=== PATIENT | male | born 1945 | race Caucasian/White ===

== ENCOUNTER 2016-10-18 07:40 | Emergency (ER) | payer OTHER ==
[2016-10-18 07:45] VITALS: RESP 18
--- NOTE | 2016-10-18 07:47 | EDPHY ---
H & P Stated Complaint: heart palpitations "in and out of afib" Time Seen by Provider: 10/18/16 07:47 HPI/ROS: CHIEF COMPLAINT: Palpitations HISTORY OF PRESENT ILLNESS: The patient presents to the ED with a 1 day history of palpitations. The patient has a history of paroxysmal atrial fibrillation. He reports he has had 2 episodes of life the 1st 2 years ago, the 2nd several weeks ago while traveling in [place]. The patient currently is asymptomatic. He denies any history of increasing exertional chest pain or dyspnea. The patient denies asymmetric calf pain or swelling. The patient denies pleuritic chest pain. The patient does have a history of coronary artery disease status post CABG. The patient also has a history of vasculitis and chronic renal insufficiency. The patient did have a recent upper respiratory infection and completed a 7 day course of amoxicillin. REVIEW OF SYSTEMS: A comprehensive 10 point review of systems is otherwise negative aside from elements mentioned in the history of present illness. Source: Patient Exam Limitations: No limitations - Personal History Tetanus Vaccine Date: 2006 - Medical/Surgical History Hx Asthma: No Hx Chronic Respiratory Disease: No Hx Diabetes: No Hx Cardiac Disease: Yes Hx Renal Disease: Yes Hx Cirrhosis: No Hx Alcoholism: No Hx HIV/AIDS: No Hx Splenectomy or Spleen Trauma: No Other PMH: SBO, only 1 kidney functioning, systemic vasculitis, left eye vitrectomy r/t bleeding in eye, heart surgery, vitrious, back surgery. Afib, renal stents, CABG 2006 cateract surgery - Social History Smoking Status: Never smoked - Physical Exam Exam: General Appearance: Alert, no distress Eyes: Pupils equal and round no pallor or injection ENT, Mouth: Mucous membranes moist Respiratory: There are no retractions, lungs are clear to auscultation Cardiovascular: Regular rate and rhythm Gastrointestinal: Abdomen is soft and nontender, no masses, bowel sounds normal Neurological: A&O, normal motor function, normal sensory exam, normal cranial nerves Skin: Warm and dry, no rashes Musculoskeletal: Neck is supple nontender Extremities: symmetrical, full range of motion Constitutional: Initial Vital Signs Temperature (C) 36.8 C 10/18/16 07:41 Heart Rate 74 10/18/16 07:41 Respiratory Rate 18 10/18/16 07:41 Blood Pressure 90/47 L 10/18/16 07:41 O2 Sat (%) 96 09/08/17 07:41 O2 Delivery Mode Room Air Allergies/Adverse Reactions: No Known Allergies Allergy (Verified 05/22/15 19:05) Home Medications: Medication Instructions Recorded Wy[place]-3 Fatty Acids [Fish Oil 1000 1,000 mg PO BID 03/30/12 mg (*)] Valsartan [Diovan (*)] 80 mg PO DAILY 03/30/12 Aspirin [Aspirin 81mg (*)] 81 mg PO HS 10/08/13 Atorvastatin Calcium [Lipitor 40 80 mg PO HS 10/08/13 mg (*)] Clopidogrel Bisulfate [Plavix (*)] 75 mg PO DAILY18 10/08/13 Hydrochlorothiazide [HCTZ (*)] 25 mg PO DAILY 10/08/13 Multivitamins [Multivitamin (*)] 1 each PO DAILY 10/08/13 Pantoprazole Sodium [Protonix 40mg 40 mg PO DAILY 10/08/13 (*)] Potassium Citrate [Urocit-K 10meq 20 meq PO BID 10/08/13 (*)] Tocilizumab [ACTEMRA] 720 mg IV Q28D 10/08/13 azaTHIOprine [Imuran 50 mg (*)] 50 mg PO BID 10/08/13 predniSONE 10 mg PO DAILY 10/08/13 traMADol [Ultram 50 mg (*)] 50 mg PO Q4 PRN 10/08/13 Zolpidem Tartrate [Ambien 5MG (*)] 5 mg PO HS PRN #0 tab 05/26/15 Citalopram Hydrobromide [celeXA 10 10 mg PO HS 12/28/15 MG] Ferrous Sulfate [Ferrous Sulf 325 325 mg PO HS 12/28/15 MG (*)] Glucosamine/Chondroitin 1 each PO BID 12/28/15 [Glucosamine/Chondroitin (*)] Imiquimod 1 each TP HS 12/28/15 Tamsulosin HCl [Flomax] 0.4 mg PO DAILY 12/28/15 Tretinoin/Emollient Base 1 therese TP DAILY 12/28/15 [Tretinoin 0.05% Emollient Crm] rOPINIRole HCL [Requip 1mg (*)] 1 mg PO HS 12/28/15 Medical Decision Making - Diagnostics EKG Interpretation: EKG: Complete interpretation has been separately recorded in the [facility] archive. Summary impression: Sinus rhythm, chronic Q-waves noted in the inferior leads, no evidence of ST segment elevation or depression ED Course/Re-evaluation: The patient presents to the ED with reported history of intermittent palpitations. The patient is noted to be in a sinus rhythm. His blood pressure is well controlled. There is no historical information suggestive of pulmonary embolism or acute coronary syndrome. The patient is scheduled to see his wide area network engineer in follow-up on Friday. The patient was placed on a hardening machine operator helper in the emergency department. The patient was monitored for an hour and half without evidence of recurrent atrial fibrillation. He does have a indeterminately elevated troponin. I did speak with his regular wide area network engineer Dr. Eder Guadarrama at 9:00 a.m.. I reviewed the patient's presentation and emergency department data. The patient does have a history of known coronary artery disease as well as a significant complicated vasculitis. The patient has no evidence of ST segment elevation myocardial infarction. The patient likely has a slight troponin bump secondary to his underlying coronary disease and possible demand ischemia from tachycardia earlier today. In the absence of any worsening anginal symptoms or ST segment elevation myocardial infarction recommendation is made for continued medical management of his coronary artery disease. Regarding the patient's arrhythmia, Dr. Eder Guadarrama is making arrangements to have a Holter monitor placed on the patient while he is in the emergency department. He will wear this and follow up with his wide area network engineer on Friday to discuss the results and need for additional therapy such as anticoagulation or rate control agents. The patient will be instructed to return to the emergency department this weekend should he developed any significant tachycardia, chest pain or difficulty breathing. Differential Diagnosis: Differential diagnosis considered includes atrial fibrillation, PVCs, SVT, myocardial infarction, worsening renal failure - Data Points Laboratory Results: Laboratory Results 10/18/16 09:08 10/18/16 09:08 Sodium 139 mEq/L mEq/L (134-144) Potassium 4.4 mEq/L mEq/L (3.5-5.2) Chloride 102 mEq/L mEq/L (97-110) Carbon Dioxide 30 mEq/l mEq/l (22-31) Anion Gap 7 mEq/L L mEq/L (8-16) BUN 32 mg/dL H mg/dL (7-23) Creatinine 1.6 mg/dL H mg/dL (0.7-1.3) Estimated GFR 43 Glucose 85 mg/dL mg/dL (70-100) Calcium 8.9 mg/dL mg/dL (8.5-10.4) Troponin I 0.073 ng/mL H ng/mL (0.000-0.034) Departure - Departure Disposition: Home, Routine, Self-Care Clinical Impression: Palpitations, History of atrial fibrillation Condition: Good Instructions: A-fib (Atrial Fibrillation) (ED) Additional Instructions: 1. Please return to the emergency department for any tachycardia or palpitations which do not stop on their own, heart rate greater than 100, chest pain, shortness of breath or other concerns. 2. Please follow up with your wide area network engineer as scheduled on Friday. Wear Holter monitor as prescribed by Cardiology. 3. Please go directly to [facility] so they can place a Holter monitor. Referrals: Eder Guadarrama MD [Medical Doctor] - As per Instructions
--- NOTE | 2016-10-18 07:54 | CPEKG ---
Heart Rate: 66 RR Interval: 909 P-R Interval: 136 QRSD Interval: 110 QT Interval: 424 QTC Interval: 445 P [place]: 57 QRS [place]: -55 T Wave [place]: 76 EKG Severity - ABNORMAL ECG - EKG Impression: SINUS RHYTHM EKG Impression: PROBABLE LEFT ATRIAL ABNORMALITY EKG Impression: LAD, CONSIDER LEFT ANTERIOR FASCICULAR BLOCK Electronically Signed By: Sukumar García 18-Oct-2016 07:55:55
[2016-10-18 08:31] LABS: ANION GAP 7 mEq/L (8-16); CALCIUM 8.9 mg/dL (8.5-10.4); CARBON DIOXIDE 30 mEq/l (22-31); CHLORIDE 102 mEq/L (97-110); CREATININE 1.6 mg/dL (0.7-1.3); GLOMERULAR FILTRATION RATE 43; GLUCOSE 85 mg/dL (70-100); POTASSIUM 4.4 mEq/L (3.5-5.2); SODIUM 139 mEq/L (134-144)
[2016-10-18 08:43] LABS: TROPONIN I 0.073 ng/mL (0.000-0.034)
[2016-10-18 09:59] VITALS: BP 136/85; PULSE 63; TEMP 98.4; O2SAT 98
== END 2016-10-18 09:56 | disposition home or self-care (01) ==
DX: R00.2 Palpitations (principal); I25.810 Atherosclerosis of coronary artery bypass graft(s) without angina pectoris; Z86.79 Personal history of other diseases of the circulatory system; Z79.82 Long term (current) use of aspirin

== ENCOUNTER → 2016-11-05 | Outpatient (CLI) | payer OTHER | LOC: BHFA 10:45 | PROVIDERS: ATTEND Internal Medicine Cardiovascular Disease | DX: I48.91 Unspecified atrial fibrillation (principal); I34.1 Nonrheumatic mitral (valve) prolapse ==

== ENCOUNTER → 2016-12-19 | Outpatient (CLI) | payer OTHER | LOC: FIMAGING 10:26 | PROVIDERS: ATTEND Physical Medicine & Rehabilitation | DX: M46.92 Unspecified inflammatory spondylopathy, cervical region (principal); M50.31 Other cervical disc degeneration, high cervical region; M48.02 Spinal stenosis, cervical region ==

== ENCOUNTER → 2017-04-25 | Outpatient (CLI) | payer OTHER | LOC: BRMIMAGING 10:20 | PROVIDERS: ATTEND Internal Medicine Nephrology | DX: N20.0 Calculus of kidney (principal) | CPT/HCPCS: 74018-PO ==

== ENCOUNTER → 2017-06-06 | Outpatient (CLI) | payer OTHER | LOC: BHFA 14:00 | PROVIDERS: ATTEND Internal Medicine Cardiovascular Disease | DX: R07.9 Chest pain, unspecified (principal); I25.10 Atherosclerotic heart disease of native coronary artery without angina pectoris; I48.91 Unspecified atrial fibrillation; I73.9 Peripheral vascular disease, unspecified | CPT/HCPCS: 78452; 93017; A9500; J2785 ==

== ENCOUNTER 2017-07-02 13:48 | Inpatient (IN) | payer OTHER ==
[2017-07-02] MEDS ORDERED: NS 2,700 ML IV ONE (14:09)
[2017-07-02] MEDS ORDERED: ACETAMINOPHEN 500 MG TAB ONE (14:15)
--- NOTE | 2017-07-02 14:15 | EDPHY ---
H & P Stated Complaint: skin cancer incised l leg 2 wks ago/rx augmentin/worse inf Time Seen by Provider: 07/02/17 14:03 HPI/ROS: CHIEF COMPLAINT: Left leg infection HISTORY OF PRESENT ILLNESS: The patient is a 71-year-old man sent from dermatology office with concerns for sepsis and wound infection. The patient is a 71-year-old man with a history of severe vasculitis as well as 5 vessel CABG and multiple peripheral stents including bilateral renal arteries and mesenteric artery. He has had balloon angioplasty in his leg as well. 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 He it became infected and he was started on Augmentin and finished a 14 day course on Friday. His symptoms resolved while he was on the Augmentin but have returned over the last few days. He is having chills and fevers and significant pain. He was seen again at the Dermatology office today who transferred him here by ambulance. He is also immunosuppressed on prednisone and monthly injection for his vasculitis. Culture sent from dermatology office. He is also on Eliquis and Plavix for history of atrial fibrillation and vascular disease. REVIEW OF SYSTEMS: Constitutional: denies: chills, fever, recent illness, recent injury EENTM: denies: blurred vision, double vision, nose congestion Respiratory: denies: cough, shortness of breath Cardiac: denies: chest pain, irregular heart rate, lightheadedness, palpitations Gastrointestinal/Abdominal: denies: abdominal pain, diarrhea, nausea, vomiting, blood streaked stools Genitourinary: denies: dysuria, frequency, hematuria, pain Musculoskeletal: denies: joint pain, muscle pain Skin: See HPI Neurological: denies: headache, numbness, paresthesia, tingling, dizziness, weakness Hematologic/Lymphatic: denies: blood clots, easy bleeding, easy bruising Immunologic/allergic: denies: HIV/AIDS, transplant EXAM: GENERAL: Chills, moderate distress. HEAD: Atraumatic, normocephalic. EYES: Pupils equal round and reactive to light, extraocular movements intact, sclera anicteric, conjunctiva are normal. ENT: TMs normal, nares patent, oropharynx clear without exudates. Moist mucous membranes. NECK: Normal range of motion, supple without lymphadenopathy or JVD. LUNGS: Breath sounds clear to auscultation bilaterally and equal. No wheezes rales or rhonchi. HEART: Regular rate and rhythm without murmurs, rubs or gallops. ABDOMEN: Soft, nontender, normoactive bowel sounds. No guarding, no rebound. No masses appreciated. BACK: No CVA tenderness, no spinal tenderness, step-offs or deformities EXTREMITIES: Normal range of motion, no pitting or edema. No clubbing or cyanosis. NEUROLOGICAL: Cranial nerves II through XII grossly intact. Normal speech, normal gait. 5/5 strength, normal movement in all extremities, normal sensation PSYCH: Normal mood, normal affect. SKIN: Left leg with 2 x 4 cm ulceration to the anterior lamb with purulence at the base. Surrounding erythema and warmth. Bruising proximally. Moderate edema. Source: Patient Exam Limitations: No limitations - Personal History Current Tetanus/Diphtheria Vaccine: Yes Tetanus Vaccine Date: 2006 - Medical/Surgical History Hx Asthma: No Hx Chronic Respiratory Disease: No Hx Diabetes: No Hx Cardiac Disease: Yes Hx Renal Disease: Yes Hx Cirrhosis: No Hx Alcoholism: No Hx HIV/AIDS: No Hx Splenectomy or Spleen Trauma: No Other PMH: SBO, only 1 kidney functioning, systemic vasculitis, left eye vitrectomy r/t bleeding in eye, heart surgery, vitrious, back surgery. Afib, renal stents, CABG 2006 cateract surgery/afib - Family History Significant Family History: No pertinent family hx - Social History Smoking Status: Never smoked Constitutional: Initial Vital Signs Temperature (C) 38.3 C 07/02/17 13:53 Heart Rate 94 07/02/17 13:53 Respiratory Rate 18 07/02/17 13:53 Blood Pressure 111/91 H 07/02/17 13:53 O2 Sat (%) 93 07/02/17 13:53 O2 Delivery Mode Room Air O2 (L/minute) 3 Allergies/Adverse Reactions: No Known Allergies Allergy (Verified 07/02/17 13:52) Home Medications: Medication Instructions Recorded Phelps-3 Fatty Acids [Fish Oil 1000 1,000 mg PO BID 03/30/12 mg (*)] Valsartan [Diovan (*)] 80 mg PO DAILY 03/30/12 Atorvastatin Calcium [Lipitor 40 80 mg PO HS 10/08/13 mg (*)] Clopidogrel Bisulfate [Plavix (*)] 75 mg PO DAILY18 10/08/13 Hydrochlorothiazide [HCTZ (*)] 25 mg PO DAILY 10/08/13 Multivitamins [Multivitamin (*)] 1 each PO DAILY 10/08/13 Pantoprazole Sodium [Protonix 40mg 40 mg PO DAILY 10/08/13 (*)] Potassium Citrate [Urocit-K 10meq 20 meq PO BID 10/08/13 (*)] Tocilizumab [ACTEMRA] 720 mg IV Q28D 10/08/13 predniSONE 10 mg PO DAILY 10/08/13 traMADol [Ultram 50 mg (*)] 50 mg PO Q4 PRN 10/08/13 Citalopram Hydrobromide [celeXA 10 10 mg PO HS 12/28/15 MG] Ferrous Sulfate [Ferrous Sulf 325 325 mg PO HS 12/28/15 MG (*)] Glucosamine/Chondroitin 1 each PO BID 12/28/15 [Glucosamine/Chondroitin (*)] Tamsulosin HCl [Flomax] 0.4 mg PO HS 12/28/15 Apixaban [Eliquis] 2.5 mg PO BID 07/02/17 Diltiazem HCl [Diltiazem 24Hr ER] 120 mg PO DAILY 07/02/17 Zolpidem Tartrate [Ambien 5MG (*)] 10 mg PO HS PRN 07/02/17 rOPINIRole HCL [Requip 2mg (*)] 2 mg PO HS 07/02/17 Medical Decision Making - Diagnostics EKG Interpretation: An EKG obtained and was read and documented in trace view. Please see trace view for full reading and report. Sinus tachycardia, otherwise similar to previous, no acute ischemic changes ED Course/Re-evaluation: 2:50 p.m. I discussed the case with Dr. Arizmendi who will admit to the step-down unit. He recommends adding vancomycin. Discussed this with the patient and his . He he is understandably sad. Differential Diagnosis: Partial list of the Differential diagnosis considered include but were not limited to; sepsis, cellulitis, wound infection and although unlikely based on the history and physical exam, I also considered DVT, PE, acute coronary disease. Critical Care Time: Critical care time spent by me, Dr. Vargas exclusive with this patient was 35 minutes, exclusive of the PA time exclusive of procedures. The organ system that was at risk was cardiovascular and I gave IV fluids, antibiotics, consultation and admission to prevent worsening of the patient's condition - Data Points Laboratory Results: Laboratory Results 07/02/17 14:08 07/02/17 14:08 07/02/17 07/02/17 07/02/17 14:52 14:26 14:09 WBC RBC Hgb POC Hgb 17.3 gm/dL gm/dL (13.7-17.5) Hct POC Hct 51 % % (40-51) MCV MCH MCHC RDW Plt Count MPV Neut % (Auto) Lymph % (Auto) [place] % (Auto) Eos % (Auto) Baso % (Auto) Nucleat RBC Rel Count Absolute Neuts (auto) Absolute Lymphs (auto) Absolute Monos (auto) Absolute Eos (auto) Absolute Basos (auto) Absolute Nucleated RBC Immature Gran % Immature Gran # RBC/WBC/PLT Morphology Platelet Estimate PT INR APTT VBG Lactic Acid TNP POC Sodium 139 mEq/L mEq/L (135-145) Sodium POC Potassium 4.1 mEq/L mEq/L (3.3-5.0) Potassium POC Chloride 97 mEq/L mEq/L (97-110) Chloride Carbon Dioxide Anion Gap POC BUN 37 mg/dL H mg/dL (7-23) BUN Creatinine POC Creatinine 2.0 mg/dL H mg/dL (0.7-1.3) Estimated GFR Glucose POC Glucose 113 mg/dL H mg/dL (70-100) Calcium Total Bilirubin Urine Color YELLOW Urine Appearance HAZY Urine pH 7.0 (5.0-7.5) Ur Specific [place] 1.014 (1.002-1.030) Urine Protein NEGATIVE (NEGATIVE) Urine Ketones NEGATIVE (NEGATIVE) Urine Blood 3+ H (NEGATIVE) Urine Nitrate NEGATIVE (NEGATIVE) Urine Bilirubin NEGATIVE (NEGATIVE) Urine Urobilinogen NEGATIVE EU EU (0.2-1.0) Ur Leukocyte Esterase 1+ H (NEGATIVE) Urine RBC Cancelled Urine WBC Cancelled Ur Epithelial Cells Cancelled Ur Renal Epithelial Cell Cancelled Urine Crystals Cancelled Ammonium Urate Crystals Cancelled Calcium Carbonate Cryst Cancelled Calcium Phosphate Cryst Cancelled Calcium Oxalate Crystal Cancelled Leucine Crystals Cancelled Cystine Crystals Cancelled Uric Acid Crystals Cancelled Triple Phos Crystals Cancelled Sulfonamide Crystals Cancelled Cholesterol Crystals Cancelled Tyrosine Crystals Cancelled Bilirubin Crystals Cancelled Amorphous Sediment Cancelled Urine Bacteria Cancelled Epithelial Casts Cancelled Fatty Casts Cancelled Hyaline Casts Cancelled Granular Casts Cancelled Waxy Casts Cancelled Broad Casts Cancelled RBC Casts Cancelled WBC Casts Cancelled Urine Mucus Cancelled Urine Trichomonas Cancelled Urine Yeast Cancelled Urine Sperm Cancelled Ur Oval Fat Bodies Cancelled Ur Free Fat Droplets Cancelled Urine Glucose NEGATIVE (NEGATIVE) Urine Comment Cancelled 07/02/17 07/02/17 07/02/17 14:08 14:08 14:08 WBC 12.07 10^3/uL H 10^3/uL (3.80-9.50) RBC 5.03 10^6/uL 10^6/uL (4.40-6.38) Hgb 16.8 g/dL g/dL (13.7-17.5) POC Hgb Hct 48.8 % % (40.0-51.0) POC Hct MCV 97.0 fL fL (81.5-99.8) MCH 33.4 pg pg (27.9-34.1) MCHC 34.4 g/dL g/dL (32.4-36.7) RDW 12.3 % % (11.5-15.2) Plt Count 100 10^3/uL L 10^3/uL (150-400) MPV 12.6 fL H fL (8.7-11.7) Neut % (Auto) 96.0 % H % (39.3-74.2) Lymph % (Auto) 1.9 % L % (15.0-45.0) [place] % (Auto) 1.7 % L % (4.5-13.0) Eos % (Auto) 0.0 % L % (0.6-7.6) Baso % (Auto) 0.2 % L % (0.3-1.7) Nucleat RBC Rel Count 0.0 % % (0.0-0.2) Absolute Neuts (auto) 11.59 10^3/uL H 10^3/uL (1.70-6.50) Absolute Lymphs (auto) 0.23 10^3/uL L 10^3/uL (1.00-3.00) Absolute Monos (auto) 0.21 10^3/uL L 10^3/uL (0.30-0.80) Absolute Eos (auto) 0.00 10^3/uL L 10^3/uL (0.03-0.40) Absolute Basos (auto) 0.02 10^3/uL 10^3/uL (0.02-0.10) Absolute Nucleated RBC 0.00 10^3/uL 10^3/uL (0-0.01) Immature Gran % 0.2 % % (0.0-1.1) Immature Gran # 0.02 10^3/uL 10^3/uL (0.00-0.10) RBC/WBC/PLT Morphology TNP Platelet Estimate TNP PT 14.2 SEC SEC (12.0-15.0) INR 1.08 (0.83-1.16) APTT 20.6 SEC L SEC (23.0-38.0) VBG Lactic Acid 3.2 mmol/L H mmol/L (0.7-2.1) POC Sodium Sodium POC Potassium Potassium POC Chloride Chloride Carbon Dioxide Anion Gap POC BUN BUN Creatinine POC Creatinine Estimated GFR Glucose POC Glucose Calcium Total Bilirubin Urine Color Urine Appearance Urine pH Ur Specific [place] Urine Protein Urine Ketones Urine Blood Urine Nitrate Urine Bilirubin Urine Urobilinogen Ur Leukocyte Esterase Urine RBC Urine WBC Ur Epithelial Cells Ur Renal Epithelial Cell Urine Crystals Ammonium Urate Crystals Calcium Carbonate Cryst Calcium Phosphate Cryst Calcium Oxalate Crystal Leucine Crystals Cystine Crystals Uric Acid Crystals Triple Phos Crystals Sulfonamide Crystals Cholesterol Crystals Tyrosine Crystals Bilirubin Crystals Amorphous Sediment Urine Bacteria Epithelial Casts Fatty Casts Hyaline Casts Granular Casts Waxy Casts Broad Casts RBC Casts WBC Casts Urine Mucus Urine Trichomonas Urine Yeast Urine Sperm Ur Oval Fat Bodies Ur Free Fat Droplets Urine Glucose Urine Comment 07/02/17 14:08 WBC RBC Hgb POC Hgb Hct POC Hct MCV MCH MCHC RDW Plt Count MPV Neut % (Auto) Lymph % (Auto) [place] % (Auto) Eos % (Auto) Baso % (Auto) Nucleat RBC Rel Count Absolute Neuts (auto) Absolute Lymphs (auto) Absolute Monos (auto) Absolute Eos (auto) Absolute Basos (auto) Absolute Nucleated RBC Immature Gran % Immature Gran # RBC/WBC/PLT Morphology Platelet Estimate PT INR APTT VBG Lactic Acid POC Sodium Sodium 138 mEq/L mEq/L (135-145) POC Potassium Potassium 4.3 mEq/L mEq/L (3.3-5.0) POC Chloride Chloride 98 mEq/L mEq/L (97-110) Carbon Dioxide 28 mEq/l mEq/l (22-31) Anion Gap 12 mEq/L mEq/L (8-16) POC BUN BUN 38 mg/dL H mg/dL (7-23) Creatinine 1.7 mg/dL H mg/dL (0.7-1.3) POC Creatinine Estimated GFR 40 Glucose 105 mg/dL H mg/dL (70-100) POC Glucose Calcium 8.7 mg/dL mg/dL (8.5-10.4) Total Bilirubin 1.9 mg/dL H mg/dL (0.1-1.4) Urine Color Urine Appearance Urine pH Ur Specific [place] Urine Protein Urine Ketones Urine Blood Urine Nitrate Urine Bilirubin Urine Urobilinogen Ur Leukocyte Esterase Urine RBC Urine WBC Ur Epithelial Cells Ur Renal Epithelial Cell Urine Crystals Ammonium Urate Crystals Calcium Carbonate Cryst Calcium Phosphate Cryst Calcium Oxalate Crystal Leucine Crystals Cystine Crystals Uric Acid Crystals Triple Phos Crystals Sulfonamide Crystals Cholesterol Crystals Tyrosine Crystals Bilirubin Crystals Amorphous Sediment Urine Bacteria Epithelial Casts Fatty Casts Hyaline Casts Granular Casts Waxy Casts Broad Casts RBC Casts WBC Casts Urine Mucus Urine Trichomonas Urine Yeast Urine Sperm Ur Oval Fat Bodies Ur Free Fat Droplets Urine Glucose Urine Comment Medications Given: Discontinued Medications Acetaminophen (Tylenol) 1,000 mg PO EDNOW ONE Stop: 07/02/17 14:17 Last Admin: 07/02/17 14:17 Dose: 1,000 mg Ceftriaxone Sodium/Dextrose (Rocephin 1 Gm (Premix)) 50 mls @ 100 mls/hr IV EDNOW ONE PRN Reason: Protocol Stop: 07/02/17 14:38 Last Admin: 07/02/17 14:15 Dose: 50 mls Sodium Chloride (Ns) 2,700 mls @ 5,400 mls/hr 30 ml/kg infuse over 30 min ( 2700 ml) IV EDNOW ONE PRN Reason: Protocol Stop: 07/02/17 14:38 Last Admin: 07/02/17 14:12 Dose: 2,700 mls Vancomycin/Sodium Chloride (Vancomycin 1 Gm (Premix)) 250 mls @ 250 mls/hr IV EDNOW ONE PRN Reason: Protocol Stop: 07/02/17 15:51 Last Admin: 07/02/17 14:59 Dose: 250 mls Sodium Chloride (Ns) 1,000 mls @ 0 mls/hr IV ONCE ONE PRN Reason: Wide Open Stop: 07/02/17 16:49 Last Admin: 07/02/17 16:50 Dose: 1,000 mls Ondansetron HCl (Zofran) 4 mg IVP EDNOW ONE Stop: 07/02/17 14:44 Last Admin: 07/02/17 14:43 Dose: 4 mg Point of Care Test Results: 07/02/17 14:09 POC Sodium 139 POC Potassium 4.1 POC Chloride 97 POC BUN 37 H POC Creatinine 2.0 H POC Glucose 113 H Departure - Departure Disposition: [facility] Inpatient Acute Clinical Impression: Severe sepsis, Wound infection Condition: Fair
[2017-07-02] MEDS ORDERED: ACETAMINOPHEN 500 MG TAB PO ONE (14:16)
[2017-07-02 14:21] LABS: PLATELET COUNT 100 10^3/uL (150-400)
[2017-07-02 14:31] LABS: INR 1.08 (0.83-1.16); PROTIME(PATIENT) 14.2 SEC (12.0-15.0)
--- NOTE | 2017-07-02 14:38 | CPEKG ---
Heart Rate: 101 RR Interval: 594 P-R Interval: 148 QRSD Interval: 106 QT Interval: 368 QTC Interval: 477 P [place]: 58 QRS [place]: -60 T Wave [place]: 75 EKG Severity - ABNORMAL ECG - EKG Impression: SINUS TACHYCARDIA EKG Impression: LEFT ATRIAL ABNORMALITY EKG Impression: LAD, CONSIDER LAFB OR INFERIOR INFARCT Electronically Signed By: Roberto Vargas 02-Jul-2017 14:47:10
[2017-07-02] MEDS ORDERED: ONDANSETRON 4 MG/2 ML VIAL ONE (14:41)
[2017-07-02] MEDS ORDERED: ONDANSETRON 4 MG/2 ML VIAL IVP ONE (14:43)
[2017-07-02] MEDS ORDERED: VANCOMYCIN HCL/NORMAL SALINE 250 ML IV ONE (14:52)
[2017-07-02] MEDS ORDERED: HYDROmorphONE/DILAUDID 2 MG TAB PO PRN (14:54)
[2017-07-02] MEDS ORDERED: ONDANSETRON 4 MG/2 ML VIAL IVP PRN (14:54)
[2017-07-02] MEDS ORDERED: HYDROmorphONE/DILAUDID 1 MG/ML INJ IVP PRN (14:54)
[2017-07-02] MEDS ORDERED: ONDANSETRON DISINTEGRATING 4 MG TAB PO PRN (14:54)
[2017-07-02] MEDS ORDERED: ACETAMINOPHEN 325 MG TAB PO PRN (14:54)
--- NOTE | 2017-07-02 15:47 | PDGENHP ---
History and Physical - Chief Complaint Acute fevers and chills - History of Present Illness PCP: Dr. Waller Primary Rheum: Dr. Patel Primary Cards: Dr. Guadarrama Primary Neph: Dr. Granger HPI: 71-year-old male presents with acute fevers and chills characterized as diffuse body shaking, subjective fever and feeling warm, with associated left lower extremity pain, swelling, left knee arthralgia and anorexia. Patient reports onset of symptoms around 1:30 p.m. On the day of presentation. He reports duration has been persistent thereafter. The symptoms are occurring in the context of recently discontinuing Augmentin, after receiving it for approximately 14 days for what was described as left lower extremity cellulitis , antibiotics discontinued 3 days ago. 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 He received the 2 weeks of Augmentin, experienced symptomatic relief, and then discontinued antibiotics 3 days ago. Since then, he has noticed increased swelling, and a confluent nonblanching skin color change somewhat superior to the surgical site. 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 Of note, the patient reports that his appetite has been particularly low on the day of presentation, with lower oral intake of solids and liquids after breakfast this morning. He reports that he took all of his home medications on the morning of presentation. He reports that his urine output has been at his baseline. He otherwise denies any cough, vomiting, diarrhea. He does endorse some lightheadedness which is exacerbated by standing, but this is chronic for the patient. He denies any chest pain. History Information - Allergies/Home Medication List Allergies/Adverse Reactions: No Known Allergies Allergy (Verified 07/02/17 13:52) Home Medications: [place]-3 Fatty Acids [Fish Oil 1000 mg (*)] 1,000 mg PO BID 03/30/12 [Last Taken 12/27/15 21:00] Valsartan [Diovan (*)] 80 mg PO DAILY 03/30/12 [Last Taken 12/28/15] Aspirin [Aspirin 81mg (*)] 81 mg PO HS 10/08/13 [Last Taken 12/27/15] Atorvastatin Calcium [Lipitor 40 mg (*)] 80 mg PO HS 10/08/13 [Last Taken ] Clopidogrel Bisulfate [Plavix (*)] 75 mg PO DAILY18 10/08/13 [Last Taken ] Hydrochlorothiazide [HCTZ (*)] 25 mg PO DAILY 10/08/13 [Last Taken 12/27/15] Multivitamins [Multivitamin (*)] 1 each PO DAILY 10/08/13 [Last Taken 12/27/15] Pantoprazole Sodium [Protonix 40mg (*)] 40 mg PO DAILY 10/08/13 [Last Taken ] Potassium Citrate [Urocit-K 10meq (*)] 20 meq PO BID 10/08/13 [Last Taken ] Tocilizumab [ACTEMRA] 720 mg IV Q28D 10/08/13 [Last Taken 4 Weeks Ago ~11/30/15] azaTHIOprine [Imuran 50 mg (*)] 50 mg PO BID 10/08/13 [Last Taken 12/28/15] predniSONE 10 mg PO DAILY 10/08/13 [Last Taken 12/28/15] traMADol [Ultram 50 mg (*)] 50 mg PO Q4 PRN 10/08/13 [Last Taken 12/27/15 21:00] Citalopram Hydrobromide [celeXA 10 MG] 10 mg PO HS 12/28/15 [Last Taken 12/27/15 ] Ferrous Sulfate [Ferrous Sulf 325 MG (*)] 325 mg PO HS 12/28/15 [Last Taken ] Glucosamine/Chondroitin [Glucosamine/Chondroitin (*)] 1 each PO BID 12/28/15 [ Last Taken 12/27/15 21:00] Imiquimod 1 each TP HS 12/28/15 [Last Taken 12/27/15] Tamsulosin HCl [Flomax] 0.4 mg PO DAILY 12/28/15 [Last Taken 12/28/15] Tretinoin/Emollient Base [Tretinoin 0.05% Emollient Crm] 1 therese TP DAILY [Last Taken 12/28/15] rOPINIRole HCL [Requip 1mg (*)] 1 mg PO HS 12/28/15 [Last Taken 12/27/15] Diltiazem 07/02/17 [Last Taken Unknown] Eliquis 07/02/17 [Last Taken Unknown] I have personally reviewed and updated: family history, medical history, social history, surgical history - Past Medical History Additional medical history: Vasculitis with chronic immunosuppression, currently receiving prednisone and Actemra. Multivessel coronary artery disease with stable angina, most recently underwent nuclear medicine stress test which was reportedly "stable"and he is currently on dual anti-platelet therapy. Paroxysmal atrial fibrillation on systemic anticoagulation and calcium channel chika. Peripheral vascular disease. Chronic kidney disease stage 3 with baseline serum creatinine around 1.6. History of small-bowel obstruction. Depression. BPH. Hyperlipidemia. Gastroesophageal reflux disease. Retinal hemorrhage - Surgical History Reports: coronary bypass surgery (5 vessel comma 2006) Additional surgical history: Renal artery stents. Mesenteric stent. Vitrectomy. Bilateral hernia repair and umbilical hernia repair. L2-L3 laminectomy. Most recent cardiac catheterization in 2016 - Family History Additional family history: Father with lung cancer in his 40s. Mother with venous thromboembolism - Social History Smoking Status: Never smoked Alcohol Use: Occasionally Drug Use: None Additional social history: Independent in his ADLs comma the patient reports that he uses exercise equipment and bikes without any angina Review of Systems Review of Systems: ROS: 10pt was reviewed & negative except for what was stated in HPI & below Constitutional: Reports: chills, fever, malaise, other (Anorexia) Muscolosketal: Reports: joint pain (Left knee) Skin: Reports: other (Skin changes left anterior lower extremity) Physical Exam Physical Exam: Temp Pulse Resp BP Pulse Ox 39.5 C H 95 22 H 125/63 H 95 07/02/17 15:39 07/02/17 15:39 07/02/17 15:39 07/02/17 15:39 07/02/17 15:39 O2 (L/minute) 2 Constitutional: no apparent distress, appears nourished, not in pain, uncomfortable Eyes: PERRL, anicteric sclera, EOMI, scleral injection Ears, Nose, Mouth, Throat: moist mucous membranes, hearing normal, ears appear normal, no oral mucosal ulcers Cardiovascular: regular rate and rhythym, systolic murmur (1/6 at the sternum), tachycardia, edema (1+ left lower extremity asymmetric), No irregularly irregular Peripheral Pulses: 1+: dorsalis-pedis (L) (Diminished) Respiratory: no respiratory distress, no rales or rhonchi, clear to auscultation Gastrointestinal: normoactive bowel sounds, soft, non-tender abdomen, no palpable masses, No guarding, No distension Skin: other (Non blanching, confluent ecchymoses over the proximal lower left leg anteriorly with normal appearing skin immediately adjacent to the most surgical area which has some sloughing in the wound bed but no overt pustulant) Musculoskeletal: other (Mild pain with flexion of the left knee), No joint effusion (Left knee), No joint tenderness (Left knee) Neurologic: AAOx3, sensation intact bilaterally, No weakness Psychiatric: interacting appropriately, not anxious, not encephalopathic, thought process linear Lab Data & Imaging Review 07/02/17 14:08 07/02/17 14:08 WBC 12.07 10^3/uL (3.80-9.50) H 07/02/17 14:08 RBC 5.03 10^6/uL (4.40-6.38) 07/02/17 14:08 Hgb 16.8 g/dL (13.7-17.5) 07/02/17 14:08 POC Hgb 17.3 gm/dL (13.7-17.5) 07/02/17 14:09 Hct 48.8 % (40.0-51.0) 07/02/17 14:08 POC Hct 51 % (40-51) 07/02/17 14:09 MCV 97.0 fL (81.5-99.8) 07/02/17 14:08 MCH 33.4 pg (27.9-34.1) 07/02/17 14:08 MCHC 34.4 g/dL (32.4-36.7) 07/02/17 14:08 RDW 12.3 % (11.5-15.2) 07/02/17 14:08 Plt Count 100 10^3/uL (150-400) L 07/02/17 14:08 MPV 12.6 fL (8.7-11.7) H 07/02/17 14:08 Neut % (Auto) 96.0 % (39.3-74.2) H 07/02/17 14:08 Lymph % (Auto) 1.9 % (15.0-45.0) L 07/02/17 14:08 [place] % (Auto) 1.7 % (4.5-13.0) L 07/02/17 14:08 Eos % (Auto) 0.0 % (0.6-7.6) L 07/02/17 14:08 Baso % (Auto) 0.2 % (0.3-1.7) L 07/02/17 14:08 Nucleat RBC Rel Count 0.0 % (0.0-0.2) 07/02/17 14:08 Absolute Neuts (auto) 11.59 10^3/uL (1.70-6.50) H 07/02/17 14:08 Absolute Lymphs (auto) 0.23 10^3/uL (1.00-3.00) L 07/02/17 14:08 Absolute Monos (auto) 0.21 10^3/uL (0.30-0.80) L 07/02/17 14:08 Absolute Eos (auto) 0.00 10^3/uL (0.03-0.40) L 07/02/17 14:08 Absolute Basos (auto) 0.02 10^3/uL (0.02-0.10) 07/02/17 14:08 Absolute Nucleated RBC 0.00 10^3/uL (0-0.01) 07/02/17 14:08 Immature Gran % 0.2 % (0.0-1.1) 07/02/17 14:08 Immature Gran # 0.02 10^3/uL (0.00-0.10) 07/02/17 14:08 RBC/WBC/PLT Morphology TNP 07/02/17 14:08 Platelet Estimate TNP 07/02/17 14:08 PT 14.2 SEC (12.0-15.0) 07/02/17 14:08 INR 1.08 (0.83-1.16) 07/02/17 14:08 APTT 20.6 SEC (23.0-38.0) L 07/02/17 14:08 VBG Lactic Acid 3.2 mmol/L (0.7-2.1) H 07/02/17 14:08 POC Sodium 139 mEq/L (135-145) 07/02/17 14:09 Sodium 138 mEq/L (135-145) 07/02/17 14:08 POC Potassium 4.1 mEq/L (3.3-5.0) 07/02/17 14:09 Potassium 4.3 mEq/L (3.3-5.0) 07/02/17 14:08 POC Chloride 97 mEq/L (97-110) 07/02/17 14:09 Chloride 98 mEq/L (97-110) 07/02/17 14:08 Carbon Dioxide 28 mEq/l (22-31) 07/02/17 14:08 Anion Gap 12 mEq/L (8-16) 07/02/17 14:08 POC BUN 37 mg/dL (7-23) H 07/02/17 14:09 BUN 38 mg/dL (7-23) H 07/02/17 14:08 Creatinine 1.7 mg/dL (0.7-1.3) H 07/02/17 14:08 POC Creatinine 2.0 mg/dL (0.7-1.3) H 07/02/17 14:09 Estimated GFR 40 07/02/17 14:08 Glucose 105 mg/dL (70-100) H 07/02/17 14:08 POC Glucose 113 mg/dL (70-100) H 07/02/17 14:09 Calcium 8.7 mg/dL (8.5-10.4) 07/02/17 14:08 Total Bilirubin 1.9 mg/dL (0.1-1.4) H 07/02/17 14:08 Urine Color YELLOW 07/02/17 14:26 Urine Appearance HAZY 07/02/17 14:26 Urine pH 7.0 (5.0-7.5) 07/02/17 14:26 Ur Specific [place] 1.014 (1.002-1.030) 07/02/17 14:26 Urine Protein NEGATIVE (NEGATIVE) 07/02/17 14:26 Urine Ketones NEGATIVE (NEGATIVE) 07/02/17 14:26 Urine Blood 3+ (NEGATIVE) H 07/02/17 14:26 Urine Nitrate NEGATIVE (NEGATIVE) 07/02/17 14:26 Urine Bilirubin NEGATIVE (NEGATIVE) 07/02/17 14:26 Urine Urobilinogen NEGATIVE EU (0.2-1.0) 07/02/17 14:26 Ur Leukocyte Esterase 1+ (NEGATIVE) H 07/02/17 14:26 Urine RBC Cancelled 07/02/17 14:26 Urine WBC Cancelled 07/02/17 14:26 Ur Epithelial Cells Cancelled 07/02/17 14:26 Ur Renal Epithelial Cell Cancelled 07/02/17 14:26 Urine Crystals Cancelled 07/02/17 14:26 Ammonium Urate Crystals Cancelled 07/02/17 14:26 Calcium Carbonate Cryst Cancelled 07/02/17 14:26 Calcium Phosphate Cryst Cancelled 07/02/17 14:26 Calcium Oxalate Crystal Cancelled 07/02/17 14:26 Leucine Crystals Cancelled 07/02/17 14:26 Cystine Crystals Cancelled 07/02/17 14:26 Uric Acid Crystals Cancelled 07/02/17 14:26 Triple Phos Crystals Cancelled 07/02/17 14:26 Sulfonamide Crystals Cancelled 07/02/17 14:26 Cholesterol Crystals Cancelled 07/02/17 14:26 Tyrosine Crystals Cancelled 07/02/17 14:26 Bilirubin Crystals Cancelled 07/02/17 14:26 Amorphous Sediment Cancelled 07/02/17 14:26 Urine Bacteria Cancelled 07/02/17 14:26 Epithelial Casts Cancelled 07/02/17 14:26 Fatty Casts Cancelled 07/02/17 14:26 Hyaline Casts Cancelled 07/02/17 14:26 Granular Casts Cancelled 07/02/17 14:26 Waxy Casts Cancelled 07/02/17 14:26 Broad Casts Cancelled 07/02/17 14:26 RBC Casts Cancelled 07/02/17 14:26 WBC Casts Cancelled 07/02/17 14:26 Urine Mucus Cancelled 07/02/17 14:26 Urine Trichomonas Cancelled 07/02/17 14:26 Urine Yeast Cancelled 07/02/17 14:26 Urine Sperm Cancelled 07/02/17 14:26 Ur Oval Fat Bodies Cancelled 07/02/17 14:26 Ur Free Fat Droplets Cancelled 07/02/17 14:26 Urine Glucose NEGATIVE (NEGATIVE) 07/02/17 14:26 Urine Comment Cancelled 07/02/17 14:26 Visualized and Interpreted EKG results: Yes EKG Interpretation: Positive for: other (Sinus tachycardia, Q-wave inferiorly with left anterior fascicular block) Assessment & Plan Assessment: 71-year-old male presents with severe sepsis secondary to left lower extremity cellulitis complicated by acute kidney injury on chronic kidney disease, acute metabolic acidosis Plan: 1. Severe sepsis. Present on admission, evidenced by end-organ failure in the setting of infection, notably lactic acidosis, acute kidney injury, thrombocytopenia, hyperbilirubinemia, meeting all ICDS-3 criteria for severe sepsis -monitor in step-down unit -hold on central line as there is currently no evidence of shock -discussed with Dr. Roberto Vargas, he has reported to me the patient will receive the weight based fluid bolus, has empirically received IV ceftriaxone and vancomycin -continue monitor labs closely -continue monitor vital signs closely -repeat lactic acid currently pending, will trend until normalized -obtain blood culture results from Dr. Caldera office tomorrow, blood cultures also sent from our emergency department 2. Cellulitis. Present on admission, left lower extremity, slightly removed from the Mohs surgery site, but I suspect that this was the skin break allowing access by opportunistic bacteria in the setting of chronic immunosuppression, based on history, responded to Augmentin which was recently discontinued 3 days ago -status post IV ceftriaxone and vancomycin the emergency department -discussed with Dr. Verito Muro from Infectious Disease, consultation appreciated, further antibiotics per their direction -wound care consultation for guidance regarding treatment at [facility] site 3. Vasculitis with chronic immunosuppression. Patient is under the care of Dr. Patel, recently received his scheduled dosage of Actemra, is no longer on azathioprine, does receive prednisone daily -at the present time, given that the patient is not hypotensive, we will continue his home dosage of prednisone as scheduled -the patient has responded poorly to IV steroids in the past, from a behavioral standpoint -if the patient does become hypotensive or is lactic acid level is rising, will give him burst of IV steroids, discussed with patient and his -the patient's skin changes are most likely secondary to infection given the temporal association with his a biopsy and temporal response to antibiotics, rather than an acute vasculitic presentation 4. Acute kidney injury on chronic kidney disease stage 3. Most likely secondary to severe sepsis as well as hypovolemia and ongoing use of home medications, will hold ARB/VALENTE-inhibitor, hold on any NSAIDs, give IV fluids as outlined above -monitor strict I&Os, daily weights, repeat serum creatinine level in a.m. -per patient, his most recent baseline creatinine is 1.6, his presenting creatinine levels 2.0 -antibiotics will have to be a renally dosed -will consult with Nephrology Service given that he is an established patient with Dr. Kevin Granger and his renal function is tenuous given his underlying vasculitis and history of renal artery stenosis 5. Acute metabolic acidosis. Secondary to lactic acid secondary to severe sepsis, continue IV normal saline and monitor, repeat lactic acid level currently pending 6. Coronary artery disease. Chronic, patient has underlying multivessel disease , currently angina free -reviewed outside records including 12/28/2015 most recent cardiac catheterization by Dr. Eder Guadarrama, demonstrated that the patient had at risk lesions in the distal circumflex as well as PDA, and if patient fails medical management, cardiac catheterization could be performed to consider PCI -continue with medical management 7. Paroxysmal atrial fibrillation. Currently in a sinus mechanism, monitor on telemetry, continue systemic anticoagulation and gemma blocking agent Diet. Renal Prophylaxis. High risk patient, currently on Eliquis, continue renally dosed Code. Full per patient, is MD POA Disposition. Anticipated discharge uncertain this time, anticipated length stay is greater than 48 hr for reasonable medical necessity including acute severe sepsis with chronic immunosuppression, acute kidney injury, metabolic acidosis. 40 min of critical care time spent with this patient, his , coordinating care with Dr. Roberto Vargas as well as Infectious Disease, specifically addressing his severe sepsis identification and treatment plan, patient remains critically ill with high risk of worsening morbidity and/or mortality secondary to the issues as outlined above and will be monitored in the step-down unit.
--- NOTE | 2017-07-02 16:28 | PDCONSULT ---
Nanotechnology Technician Note: Renal Consult Note - Chief Complaint Fever - History of Present Illness The patient is a 71 y/o M with a known h/o GPA wh presented with fever, chills, and LLE pain with swelling for one day. 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 In addition, he has one-functioning kidney and also suffers from recurrent nephrolithiasis. He reports that he has not been eating or drinking well for a few days. He follows with Dr. Granger and is compliant with his medications. He is no longer taking Imuran but is on an IL-6 inhibitor as well as prednisone 10mg daily. He mentions that he has had some burning with urination today. He has no recent h/o UTI. He had a KUB one month ago to assess for stone load at an outside facility. His is present at bedside. - Allergies/Home Medication List No Known Allergies Allergy (Verified 07/02/17 13:52) Home Medications: List reviewed - Past Medical History Vasculitis with chronic immunosuppression, currently receiving prednisone and Actemra. Multivessel coronary artery disease with stable angina, most recently underwent nuclear medicine stress test which was reportedly "stable"and he is currently on dual anti-platelet therapy. Paroxysmal atrial fibrillation on systemic anticoagulation and calcium channel chika. Peripheral vascular disease. Chronic kidney disease stage 3 with baseline serum creatinine around 1.6. History of small-bowel obstruction. Depression. BPH. Hyperlipidemia. Gastroesophageal reflux disease. Retinal hemorrhage - Surgical History coronary bypass surgery (5 vessel comma 2006) Renal artery stents. Mesenteric stent. Vitrectomy. Bilateral hernia repair and umbilical hernia repair. L2-L3 laminectomy. Most recent cardiac catheterization in 2016 - Family History Father with lung cancer in his 40s. Mother with venous thromboembolism - Social History Smoking Status: Never smoked Alcohol Use: Occasionally Drug Use: None Review of Systems 10pt was reviewed & negative except for what was stated in HPI & below Objective: Temp Pulse Resp BP Pulse Ox 39.5 C H 95 22 H 125/63 H 95 07/02/17 15:39 07/02/17 15:39 07/02/17 15:39 07/02/17 15:39 07/02/17 15:39 O2 (L/minute) 2 Physical Exam: General: A+Ox3, NAD Neck: Supple, no thyromegaly HEENT: No trauma, dry MM CV: RRR, no murmurs Lungs: CTA b/l, no wheezing Abdomen: Soft, NT, ND, +BS EXT: Trace edema, LLE chronic venous stasis changes with erythema to knee, no pus Neuro: Non-focal WBC 12.07 10^3/uL (3.80-9.50) H 07/02/17 14:08 RBC 5.03 10^6/uL (4.40-6.38) 07/02/17 14:08 Hgb 16.8 g/dL (13.7-17.5) 07/02/17 14:08 POC Hgb 17.3 gm/dL (13.7-17.5) 07/02/17 14:09 Hct 48.8 % (40.0-51.0) 07/02/17 14:08 POC Hct 51 % (40-51) 07/02/17 14:09 MCV 97.0 fL (81.5-99.8) 07/02/17 14:08 MCH 33.4 pg (27.9-34.1) 07/02/17 14:08 MCHC 34.4 g/dL (32.4-36.7) 07/02/17 14:08 RDW 12.3 % (11.5-15.2) 07/02/17 14:08 Plt Count 100 10^3/uL (150-400) L 07/02/17 14:08 MPV 12.6 fL (8.7-11.7) H 07/02/17 14:08 Neut % (Auto) 96.0 % (39.3-74.2) H 07/02/17 14:08 Lymph % (Auto) 1.9 % (15.0-45.0) L 07/02/17 14:08 [place] % (Auto) 1.7 % (4.5-13.0) L 07/02/17 14:08 Eos % (Auto) 0.0 % (0.6-7.6) L 07/02/17 14:08 Baso % (Auto) 0.2 % (0.3-1.7) L 07/02/17 14:08 Nucleat RBC Rel Count 0.0 % (0.0-0.2) 07/02/17 14:08 Absolute Neuts (auto) 11.59 10^3/uL (1.70-6.50) H 07/02/17 14:08 Absolute Lymphs (auto) 0.23 10^3/uL (1.00-3.00) L 07/02/17 14:08 Absolute Monos (auto) 0.21 10^3/uL (0.30-0.80) L 07/02/17 14:08 Absolute Eos (auto) 0.00 10^3/uL (0.03-0.40) L 07/02/17 14:08 Absolute Basos (auto) 0.02 10^3/uL (0.02-0.10) 07/02/17 14:08 Absolute Nucleated RBC 0.00 10^3/uL (0-0.01) 07/02/17 14:08 Immature Gran % 0.2 % (0.0-1.1) 07/02/17 14:08 Immature Gran # 0.02 10^3/uL (0.00-0.10) 07/02/17 14:08 RBC/WBC/PLT Morphology TNP 07/02/17 14:08 Platelet Estimate TNP 07/02/17 14:08 PT 14.2 SEC (12.0-15.0) 07/02/17 14:08 INR 1.08 (0.83-1.16) 07/02/17 14:08 APTT 20.6 SEC (23.0-38.0) L 07/02/17 14:08 VBG Lactic Acid 1.3 mmol/L (0.7-2.1) 07/02/17 15:49 POC Sodium 139 mEq/L (135-145) 07/02/17 14:09 Sodium 138 mEq/L (135-145) 07/02/17 14:08 POC Potassium 4.1 mEq/L (3.3-5.0) 07/02/17 14:09 Potassium 4.3 mEq/L (3.3-5.0) 07/02/17 14:08 POC Chloride 97 mEq/L (97-110) 07/02/17 14:09 Chloride 98 mEq/L (97-110) 07/02/17 14:08 Carbon Dioxide 28 mEq/l (22-31) 07/02/17 14:08 Anion Gap 12 mEq/L (8-16) 07/02/17 14:08 POC BUN 37 mg/dL (7-23) H 07/02/17 14:09 BUN 38 mg/dL (7-23) H 07/02/17 14:08 Creatinine 1.7 mg/dL (0.7-1.3) H 07/02/17 14:08 POC Creatinine 2.0 mg/dL (0.7-1.3) H 07/02/17 14:09 Estimated GFR 40 07/02/17 14:08 Glucose 105 mg/dL (70-100) H 07/02/17 14:08 POC Glucose 113 mg/dL (70-100) H 07/02/17 14:09 Calcium 8.7 mg/dL (8.5-10.4) 07/02/17 14:08 Total Bilirubin 1.9 mg/dL (0.1-1.4) H 07/02/17 14:08 Urine Color YELLOW 07/02/17 14:26 Urine Appearance HAZY 07/02/17 14:26 Urine pH 7.0 (5.0-7.5) 07/02/17 14:26 Ur Specific [place] 1.014 (1.002-1.030) 07/02/17 14:26 Urine Protein NEGATIVE (NEGATIVE) 07/02/17 14:26 Urine Ketones NEGATIVE (NEGATIVE) 07/02/17 14:26 Urine Blood 3+ (NEGATIVE) H 07/02/17 14:26 Urine Nitrate NEGATIVE (NEGATIVE) 07/02/17 14:26 Urine Bilirubin NEGATIVE (NEGATIVE) 07/02/17 14:26 Urine Urobilinogen NEGATIVE EU (0.2-1.0) 07/02/17 14:26 Ur Leukocyte Esterase 1+ (NEGATIVE) H 07/02/17 14:26 Urine RBC Cancelled 07/02/17 14:26 Urine WBC Cancelled 07/02/17 14:26 Ur Epithelial Cells Cancelled 07/02/17 14:26 Ur Renal Epithelial Cell Cancelled 07/02/17 14:26 Urine Crystals Cancelled 07/02/17 14:26 Ammonium Urate Crystals Cancelled 07/02/17 14:26 Calcium Carbonate Cryst Cancelled 07/02/17 14:26 Calcium Phosphate Cryst Cancelled 07/02/17 14:26 Calcium Oxalate Crystal Cancelled 07/02/17 14:26 Leucine Crystals Cancelled 07/02/17 14:26 Cystine Crystals Cancelled 07/02/17 14:26 Uric Acid Crystals Cancelled 07/02/17 14:26 Triple Phos Crystals Cancelled 07/02/17 14:26 Sulfonamide Crystals Cancelled 07/02/17 14:26 Cholesterol Crystals Cancelled 07/02/17 14:26 Tyrosine Crystals Cancelled 07/02/17 14:26 Bilirubin Crystals Cancelled 07/02/17 14:26 Amorphous Sediment Cancelled 07/02/17 14:26 Urine Bacteria Cancelled 07/02/17 14:26 Epithelial Casts Cancelled 07/02/17 14:26 Fatty Casts Cancelled 07/02/17 14:26 Hyaline Casts Cancelled 07/02/17 14:26 Granular Casts Cancelled 07/02/17 14:26 Waxy Casts Cancelled 07/02/17 14:26 Broad Casts Cancelled 07/02/17 14:26 RBC Casts Cancelled 07/02/17 14:26 WBC Casts Cancelled 07/02/17 14:26 Urine Mucus Cancelled 07/02/17 14:26 Urine Trichomonas Cancelled 07/02/17 14:26 Urine Yeast Cancelled 07/02/17 14:26 Urine Sperm Cancelled 07/02/17 14:26 Ur Oval Fat Bodies Cancelled 07/02/17 14:26 Ur Free Fat Droplets Cancelled 07/02/17 14:26 Urine Glucose NEGATIVE (NEGATIVE) 07/02/17 14:26 Urine Comment Cancelled 07/02/17 14:26 Imaging: Results reviewed. Assessment/Plan: The patient is a 71 y/o M with a known h/o CKD Stage III 2/2 to solitary kidney, vasculitis, and nephrolithiasis who presents with possible sepsis 2/2 to LLE cellulitis. CKD Stage III w h/o vasculitis -baseline Cr 1.4-1.6, currently 1.7 -most likely pre-renal, agree with fluids and repeat labs -will send urine culture given +LE on UA -hematuria noted, with h/o vasculitis on IS -avoid contrast and nephrotoxins HTN/vol: -continue ARB and may hold diuretic for now -keep MAP>65 H/o nephrolithiasis -recent KUB with substantial stones -may consider renal US for h/o nephrolithiasis if symptomatic -continue hydration -continue potassium citrate LLE cellulitis -ID consult pending, appreciated This consult is greatly appreciated, will continue to follow. Please contact if ?s #[phone].
[2017-07-02] MEDS ORDERED: NS 1,000 ML IV ONE (16:48)
--- NOTE | 2017-07-02 17:24 | PDMN ---
Medical Necessity Medical necessity: Pt meets IP criteria per MD; est los >2 mn for eval/tx of severe sepsis secondary to LLE cellulitis complicated by acute kidney injury, metabolic acidosis & chronic immunosuppression; pt critically ill; admit to Step -Down ICU for further workup/close monitoring, ID/Nephrology/Wound Care consults , IV abx & IVFs; hx AFIB on AC, CAD, CKD, vasculitis w/chronic immunosuppression , PVD; per H&P & order 07/02/17
[2017-07-02] MEDS: NS 1,000 ML IV SCH (18:38)
--- NOTE | 2017-07-02 18:51 | GCON ---
[f rep st] CONSULTATION INFECTIOUS DISEASE CONSULTATION DATE OF CONSULTATION: 07/02/2017 REASON FOR CONSULTATION: Left lower extremity cellulitis and sepsis. HISTORY OF PRESENT ILLNESS: A 71-year-old male with known chronic kidney disease stage 3 secondary to solitary kidney, fzqllv-[id number] cell vasculitis and nephrolithiasis, whose problems date back to 06/09/2017, when he underwent Mohs surgery for squamous cell carcinoma. These squamous cell carcinomas are felt to be a complication related to past immunosuppression for vasculitis. Initially, there was no complication related to the Mohs per Surgery, but the patient received an injection of tocilizumab on June 13. The patient developed increasing pain of his left lower extremity starting on June 14 and on the , was started on Augmentin. He had a 2-week course of Augmentin, and completed his course approximately June 29. The patient developed some increasing pain of this left lower extremity, and was seen by his reimbursement coordinator, Dr. Caldera, on 07/01/2017, and underwent debridement of the wound. He developed further pain associated with this wound and a fever and eventually presented to the emergency room today for further evaluation. The patient was found to have hypotension, fever, borderline tachycardia, slightly worsening renal function, and a left swollen and painful leg consistent with cellulitis. The patient was initially given 1 dose of ceftriaxone 1 g followed by vancomycin 1 g. The patient's creatinine clearance based on his kidney function today is 43. The patient states that the pain in his left lower extremity has already improved. He strongly desires to leave for a trip to [place] this Friday, which he and his are planning to drive to visit family. ALLERGIES: NKDA. MEDICATIONS: The patient received a dose of ceftriaxone 1 g and vancomycin 1 g. He is also maintained on prednisone 10 mg daily, tocilizumab 750 mg every 28 days, Lipitor, aspirin, valsartan, fish oil, hydrochlorothiazide, tramadol, Celexa, Flomax. PAST MEDICAL HISTORY: 1. 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 Now, he is receiving prednisone and Actemra. 2. Coronary artery disease, status post 5-vessel CABG in 2006. 3. Paroxysmal atrial fibrillation. 4. Peripheral vascular disease. 5. Chronic renal insufficiency stage 3, creatinine around 1.6, history of SBO. 6. Depression. 7. BPH. 8. Hyperlipidemia. 9. Gastroesophageal reflux disease. 10. Retinal hemorrhage. 11. Nephrolithiasis. PAST SURGICAL HISTORY: CABG, renal artery stents, mesenteric stents, vitrectomy , hernia repair and umbilical hernia repair, L2-3 laminectomy. FAMILY HISTORY: Positive for cancer, lung cancer in his father and his mother with DVT. SOCIAL HISTORY: Never smoked. Occasional alcohol. 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 They have no pets, and he has been for over 40 years. REVIEW OF SYSTEMS: A complete 10-point review of systems was performed and is negative except as mentioned in the HPI. PHYSICAL EXAMINATION: VITAL SIGNS: BP 113/44, heart rate is 86 down from 101, respiratory rate 22, saturation 93% on 3 L, temperature of 39.4. GENERAL: This is a pleasant male, lying in bed in no acute distress. HEENT: The patient has pinkish discoloration of his face. Moist mucous membranes. No oral ulcerations or exudates. NECK: Supple. CARDIOVASCULAR: Regular rate. No murmurs. CHEST: Clear to auscultation bilaterally. ABDOMEN: Soft, nontender. EXTREMITIES: He has a quite sizable wound on his left lateral ankle with some necrotic material along the edge with an irregular border close to 4 or 5 cm in the largest dimension, the other way 2 cm. A depth of probably 0.5 cm. There was no purulence in the base. It was tender to palpation. His leg in general was quite warm, swollen, approximately 2 times the size of his other leg and tender to palpation. He had some petechial changes in a band- like pattern immediately under the knee. He had normal capillary refill and palpable pulses in his feet bilaterally. He had obvious loss of hair of the lower extremities. NEUROLOGIC: He was alert and oriented x4, conversational, moves all 4 extremities equally. LABORATORY DATA: White count 12,000 with 96% neutrophils, hematocrit 48, platelets of a 100. INR 1. Lactate initially 3.2, repeat 1.3. Creatinine 2.0. Urinalysis showed 3+ blood, 1+ leuko esterase. Blood cultures were collected, and are pending. No imaging was performed. ASSESSMENT AND PLAN: This is a 71-year-old male on chronic immunosuppression with an anti-IL-6 inhibitor and low-dose prednisone for mtkfhk-hh-urbxw cell arteritis with underlying multifactorial renal insufficiency (vasculitis, single kidney, history of nephrolithiasis) who presents with sepsis due to left lower extremity cellulitis with portal of entry due to a wound associated with Mohs procedure on 06/09/2017. The patient recently recovered from less severe left lower extremity infection after completing course with Augmentin. Certainly, this raises the possibility of this secondary infection being mediated by methicillin-resistant Staphylococcus aureus, but clinically, exam most consistent with disease mediated by streptococcus due to lack of purulence as well as rapid onset. The patient has already gotten 1 dose of vancomycin which is at 1 g, which is appropriate for his creatinine clearance of 43. We will hold off on further dosing based on reassessment tomorrow. Will check a random level in the a.m. In the instance that vancomycin wants to be redosed, will give an inkling on pharmacodynamics of the drug. In the meantime, we will start the patient on renal dose Ancef at 2 g IV q.12. Explained the pathogenesis of his recurrent infection, likely due to lack of healing of his chronic wound, and would recommend wound nurse consult. The patient should elevate his leg. Wound culture was taken by me to help direct antibiotic therapy going forward. Thank you for this consult. We will continue to see the patient on a daily basis. ADDENDUM: GNR bacteremia, still suspect source L leg wound. DC cefazolin and start ceftriaxone due to better GNR coverage. Awaiting BCID, obvious gap PsA. /[id number]/MODL MTDD
[2017-07-02] MEDS: methylPREDNISolone SOD SUCC 40 MG/ML VIAL IVP SCH (19:34)
[2017-07-02] MEDS ORDERED: ceFAZolin 2 GM in D5W 100 ML IV SCH (21:00)
[2017-07-02] MEDS ORDERED: ceFAZolin 2 GM/DEXTROSE 100 ML IV SCH (21:00)
[2017-07-02] MEDS ORDERED: APIXABAN 2.5 MG TAB PO ONE (22:59)
[2017-07-02] MEDS ORDERED: POTASSIUM CL 20 MEQ TAB PO ONE (22:59)
[2017-07-02] MEDS ORDERED: CLOPIDOGREL BISULFATE 75 MG TAB PO ONE (23:00)
[2017-07-02] MEDS ORDERED: traMADol 50 MG TAB PO PRN (23:08)
[2017-07-02] MEDS: ZOLPIDEM TARTRATE 5 MG TAB PO PRN (23:26)
[2017-07-02] MEDS: GLUCOSAMINE/CHONDROITIN CAP PO SCH (23:26)
[2017-07-02] MEDS: ATORVASTATIN CALCIUM 40 MG TAB PO SCH (23:28)
[2017-07-02] MEDS: TAMSULOSIN HCL 0.4 MG CAP PO SCH (23:33)
[2017-07-02] MEDS: FERROUS SULFATE 325 MG TAB PO SCH (23:34)
[2017-07-02] MEDS: CITALOPRAM 20 MG TAB PO SCH (23:36)
[2017-07-02] MEDS: OMEGA-3 FATTY ACIDS 1,000 MG CAP PO SCH (23:36)
[2017-07-03] MEDS: methylPREDNISolone SOD SUCC 40 MG/ML VIAL IVP SCH (04:20)
[2017-07-03 04:42] LABS: PLATELET COUNT 61 10^3/uL (150-400)
[2017-07-03] MEDS: PANTOPRAZOLE SODIUM 40 MG TAB PO SCH (08:35)
[2017-07-03] MEDS: OMEGA-3 FATTY ACIDS 1,000 MG CAP PO SCH ×2 (08:36→20:58)
[2017-07-03] MEDS: GLUCOSAMINE/CHONDROITIN CAP PO SCH ×2 (08:36→20:58)
[2017-07-03] MEDS: DILTIAZEM CD 120 MG CAP PO SCH (08:36)
[2017-07-03] MEDS: MULTIVITAMINS 1 EACH TAB PO SCH (08:36)
[2017-07-03] MEDS ORDERED: predniSONE 10 MG TAB PO SCH (09:00)
[2017-07-03] MEDS ORDERED: APIXABAN 2.5 MG TAB PO SCH (09:00)
--- NOTE | 2017-07-03 10:54 | PCMIDPN ---
Assessment/Plan: Assessment: Left lower extremity cellulitis with sepsis. Clinically he is improving. Patient does have a Gram-negative dewey in his blood. This is identified by the PCR test as E coli. No sensitivities yet. However given that he is making a clinical improvement on ceftriaxone we will continue this antibiotic empirically. Plan: 1. Continue IV ceftriaxone. 2. Follow laboratory values as well as clinical signs. 3. Anticipate a 2 week course of therapy. May be able to switch to oral fluoroquinolones if sensitivities permit. Subjective: Patient is resting in his hospital bed. He states he feels much better. Notes that the left lower extremity is less swollen today. He feels less pain in the wound. No fevers or chills. Objective: Ceftriaxone # 1 Vital Signs Temp Pulse Resp BP Pulse Ox 36.8 C 71 19 120/48 L 94 07/03/17 08:00 07/03/17 08:36 07/03/17 08:00 07/03/17 08:36 07/03/17 08:00 Microbiology 07/02/17 17:40 Gram Stain - Final Leg - Swab Laboratory Results 07/03/17 04:30 07/03/17 04:30 07/02/17 07/03/17 07/04/17 05:59 05:59 05:59 Intake Total 6190 Output Total 1675 Balance 4515 C-Reactive Protein 5.6 mg/L (<10.0) 07/02/17 14:08 - Physical Exam General Appearance: WD/WN, alert, no apparent distress, non-toxic Respiratory: lungs clear, normal breath sounds, No respiratory distress Cardiac/Chest: regular rate, rhythm, No tachycardia Extremities: pedal edema, inflammation, swelling, erythema, No non-tender, No normal inspection Skin: normal color, warm/dry, No rash Neuro/Psych: alert, normal mood/affect, oriented x 3 ICD10 Worksheet Patient Problems: Problems Problem Status Onset Severe sepsis Acute Wound infection Acute Atrial fibrillation Acute Coronary artery disease Acute Small bowel obstruction Acute Status post coronary artery bypass grafting Acute Vasculitis Acute
--- NOTE | 2017-07-03 11:38 | SOAPPROG ---
SOCINDY Progress Note Assessment/Plan: Assessment: 1. Renal Kevin is doing well in this regard. He has a solitary functioning kidney with a stented artery. He is followed with routine surveillance by Dr. Arthur Mccracken at [facility] (dopplers of renal artery). Unfortunately he has recurrent stone issues also. 2. Vasculitis This has been fairly stable on his prednisone and actemra. He recently has had mesenteric vascular issues. 3. Cellulitis and Bacteremia Surprisingly, patient had e coli bacteremia. Portal of infection is thought to be skin, but need to remain aware of potential urinary or enteric portal. Plan: 07/03/17 11:35 07/03/17 11:38 Subjective: Looks ok Objective: Vital Signs Temp Pulse Resp BP Pulse Ox 36.8 C 71 19 120/48 L 94 07/03/17 08:00 07/03/17 08:36 07/03/17 08:00 07/03/17 08:36 07/03/17 08:00 Microbiology 07/02/17 17:40 Gram Stain - Final Leg - Swab Laboratory Results 07/03/17 04:30 07/03/17 04:30 07/02/17 07/03/17 07/04/17 05:59 05:59 05:59 Intake Total 6190 Output Total 1675 Balance 4515 PT 14.2 SEC (12.0-15.0) 07/02/17 14:08 INR 1.08 (0.83-1.16) 07/02/17 14:08 Physical Exam - Physical Exam General Appearance: no apparent distress Respiratory: normal breath sounds Cardiac/Chest: regular rate, rhythm Extremities: pedal edema Neuro/Psych: oriented x 3 ICD10 Worksheet Patient Problems: Problems Problem Status Onset Severe sepsis Acute Wound infection Acute Atrial fibrillation Acute Coronary artery disease Acute Small bowel obstruction Acute Status post coronary artery bypass grafting Acute Vasculitis Acute
--- NOTE | 2017-07-03 12:24 | ASMTCASEMG ---
Living Arrangements What is your living Answers: With Spouse arrangement? Who do you live with? Type Of Residence What kind of residence do Answers: House you live in? 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 Patient recently underwent Mohs surgery for squamous cell carcinoma. Patient has been admitted for severe sepsis, wound infection, CAD, AFIB, small bowel obstruction, and status post coronary artery bypass grafting. Wound care ordered. No therapies have been ordered at this time.D/C plan TBD. CM will follow. Date Signed: 07/03/2017 12:23 PM Electronically Signed By:Kita Diana LCSW
--- NOTE | 2017-07-03 12:39 | WOCRNPDOC ---
WOCRN Advanced Assessment Note - Skin Integrity Problem, Advanced Assess Left Anterior Lower Leg Dressing Type: Allevyn Life Dressing Description: Intact Exudate Amount: Moderate Exudate Color: Reddish/Yellow Exudate Characteristic(s): Serosanguinous Integumentary Issue Intervention: Dressing Changed, Dressing Initialed & Dated, Mechanical Debridement (loose necrotic tissue removed w/ forceps and scissors) Angie Wound Tissue: Erythema, Swollen, Venous Dermatitis Angie Wound Swelling: Moderate Wound Bed Color: Red, Yellow Wound Bed Constitution: Granulation Tissue (20%), Red/Topstone - Non Granular Tissue (20%), Mixed Loose & Adhered Slough/Eschar (60%) Wound Edges: Epithelizing Site Odor: None Site Measurement - Head-to-Toe Length X Width X Depth (cm): 4.2cmx1.8cmx0.3cm Skin Integrity Problem Comment: Wound on anterior LLE, s/p MOHS surgery 3 weeks ago, w/ subsequent cellulitis and sepsis. Loose slough removed from wound bed w / scissors and forceps, 60% adhered slough remaining w/ both granulating and non -granulating tissue scattered throughout. There is some new epithelialization along the margins. Periwound skin is intact, w/ moderate swelling and erythema throughout the LLE. There is also some underlying hemosiderin staining to the skin, indicating possible venous insufficiency. +2 DP pulse in this extremity. Applied dressing w/ both collagen and Hydrofera Blue Ready today, and provided [id number] wound care instructions in discharge plans, as patient is planning to go on vacation for the next 2 weeks. Will initiate mild compression today, 15mmHg. [facility] for [facility] care when he returns from his trip.
--- NOTE | 2017-07-03 14:25 | HOSPPROG ---
Hospitalist Progress Note Assessment/Plan: 71 yo M with hx of vasculitis on chronic immune suppression presenting with severe sepsis in setting of e coli bacteremia and cellulitis # severe sepsis: in setting of e coli bacteremia, cellulitis and improving overnight on cefazolin now transitioned to ctx # e coli bacteremia: with presumably cellulitis as a source and as above. Appreciate ID input. Will continue CTX for now, will get repeat blood cultures in am. # cellulitis: presumed source for above, though this is unusual. Per report issues with leg began following Moh's procedure. 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 Old records reviewed and summarized as above. Care plan reviewed with Dr. Wilson on multidisciplinary rounds. Subjective: no significant overnight events, patient feeling much better Objective: Vital Signs Temp Pulse Resp BP Pulse Ox 36.6 C 67 22 H 119/72 95 07/03/17 12:08 07/03/17 12:08 07/03/17 12:08 07/03/17 12:08 07/03/17 12:08 Microbiology 07/02/17 17:40 Gram Stain - Final Leg - Swab Laboratory Results 07/03/17 04:30 07/03/17 04:30 07/02/17 07/03/17 07/04/17 05:59 05:59 05:59 Intake Total 6190 Output Total 1675 150 Balance 4515 -150 PT 14.2 SEC (12.0-15.0) 07/02/17 14:08 INR 1.08 (0.83-1.16) 07/02/17 14:08 awake alert nad anicteric op clear rrr no mrg cta b soft nt nd no cce warm dry well perfused - Time Spent With Patient Time Spent with Patient: greater than 35 minutes Time Spent with Patient: Greater than 35 minutes spent on this patients care, greater than 50% of time spent counseling, educating, and coordinating care regarding the above mentioned plan. ICD10 Worksheet Patient Problems: Problems Problem Status Onset Atrial fibrillation Acute Small bowel obstruction Acute Status post coronary artery bypass grafting Acute Coronary artery disease Acute Vasculitis Acute Severe sepsis Acute Wound infection Acute
--- NOTE | 2017-07-03 15:14 | GCON ---
[f rep st] CONSULTATION CRITICAL CARE CONSULTATION DATE OF CONSULTATION: 07/03/2017 HISTORY OF PRESENT ILLNESS: This patient is a 71-year-old male who was admitted last night with feve rs, chills, and rigors after a recent course of antibiotics. He has a longstanding history of an uns pecified vasculitis and has required immunosuppressive therapy for this, including Imuran in the past and more recently, prednisone. He is thought to have developed squamous cell carcinoma of the skin as a result of the azathioprine and subsequently underwent Mohs surgery debridement. This was compli cated by a wound infection and cellulitis for which he received Augmentin. This seemed to work quite well, and he completed a 14 day course and stopped 3 days prior to admission. He went to his dermat ologist office, but was instructed to go to the emergency department where he was found to be hypoten sive with a mildly elevated lactate. He was given IV fluids, antibiotics, evaluated by Amilcar Barrett, and brought to the step-down unit overnight. He said he felt substantially better once he was given treatment. Because of his prednisone and his hypotension, he was treated with Solu-Medrol 80 mg q.8 hours. At the time of my evaluation, he said he felt substantially better. He never required pressor support, but was concerned about a steroid dose. REVIEW OF SYSTEMS: Otherwise negative. PAST MEDICAL HISTORY: Includin. Vasculitis as described above. 2. Coronary artery disease. 3. Paroxysmal atrial fibrillation. 4. Peripheral arterial disease. 5. Chronic kidney disease with a baseline creatinine around 1.6. 6. Remote small bowel obstruction. 7. Depression. 8. Benign prostatic hypertrophy. 9. Hyperlipidemia. 10. Gastroesophageal reflux disease. 11. Retinal hemorrhage. PAST SURGICAL HISTORY: Includes: 1. Coronary artery bypass in about 2006. 2. Renal artery stents. 3. Mesenteric stents. 4. Sphincterectomy. 5. Bilateral hernia repair. 6. L2-3 laminectomy. FAMILY HISTORY: Includes lung cancer in his mother and venous thromboembolic disease in his mother. SOCIAL HISTORY: He is a nonsmoker, occasional alcohol, but no IV drug use. MEDICATIONS: At this time, include Eliquis, Lipitor, Rocephin, Celexa, Plavix, diltiazem, iron, Dila udid, glucosamine, fish oil, Zofran, Protonix, prednisone, Solu-Medrol, Requip, Flomax, Ambien. PHYSICAL EXAMINATION: VITAL SIGNS: His T-max was 39.5, now 36.6. Blood pressure at time of my eval uation was 120/48, heart rate is 67, respirations 19, oxygen saturation 94% on room air. GENERAL: Theo duran is very pleasant man who was overweight, but in no apparent distress and able to speak in full sent ences without using accessory muscles for breathing. HEENT: Pupils are equally round and reactive t o light, nonicteric and noninjected. Mucous membranes were moist without erythema or exudate. NECK: Supple, without adenopathy or jugular venous distention. LUNGS: Breath sounds clear to auscultati on bilaterally without wheezes, rubs, or rales. HEART: Regular rate and rhythm without obvious murm ur. ABDOMEN: Soft, nontender, nondistended without hepatosplenomegaly. EXTREMITIES: His left late ral ankle has a 4-5 cm wound with some necrotic material, but no obvious pus. There was also some ed kely. NEUROLOGIC: Exam is nonfocal, including cranial nerves, deep tendon reflexes. SKIN: Otherwis e, warm and dry, without evidence of rash. LABORATORY DATA: White count of 12.0, when he arrived, now down to 10.0, hematocrit of 43, platelets of 61. Normal basic metabolic panel, which includes creatinine 1.3, this was 1.7 on admission. Abby er function tests were normal. UA was negative. Blood cultures grow E coli in multiple bottles. Ur ine cultures negative to date. ASSESSMENT/PLAN: 1. Cellulitis of his lower extremity. He appears to be doing well on his current Ancef, though del duran is some concern of why he failed his previous antibiotics. I will discuss with Infectious Disease the utility of an ultrasound. I do not see any sequelae of endocarditis. I do not feel an echocardi ogram is useful at this time. 2. Severe sepsis with some septic shock, though this resolved rapidly with intravenous fluids. His blood pressure appears to be adequate at this time. Stress dose steroids are reasonable thought part icularly in someone on chronic prednisone, but things are quite stable at this time. I would discont inue his Solu-Medrol, which parenthetically does not include mineral corticoid effect and given his p rednisone of 8 mg per day, watching very closely. 3. Thrombocytopenia. It looks like this is a chronic problem for him, may be due to some bone marro w suppression or his underlying vasculitis disease. We will discuss that with him. There is no sign s of bleeding and I do not think a platelet transfusion is required for now. /[id number]/MODL
[2017-07-03] MEDS: CLOPIDOGREL BISULFATE 75 MG TAB PO SCH (18:10)
[2017-07-03] MEDS: ATORVASTATIN CALCIUM 40 MG TAB PO SCH (20:58)
[2017-07-03] MEDS: CITALOPRAM 20 MG TAB PO SCH (20:58)
[2017-07-03] MEDS: APIXABAN 5 MG TAB PO SCH (20:58)
[2017-07-03] MEDS: FERROUS SULFATE 325 MG TAB PO SCH (20:58)
[2017-07-03] MEDS: TAMSULOSIN HCL 0.4 MG CAP PO SCH (20:59)
[2017-07-03] MEDS: NS 1,000 ML IV SCH (21:01)
[2017-07-03] MEDS: ZOLPIDEM TARTRATE 5 MG TAB PO PRN (21:11)
[2017-07-04] MEDS: predniSONE 1 MG TAB PO SCH (08:41)
[2017-07-04] MEDS: OMEGA-3 FATTY ACIDS 1,000 MG CAP PO SCH ×2 (08:41→21:27)
[2017-07-04] MEDS: predniSONE 5 MG TAB PO SCH (08:42)
[2017-07-04] MEDS: MULTIVITAMINS 1 EACH TAB PO SCH (08:42)
[2017-07-04] MEDS: APIXABAN 5 MG TAB PO SCH ×2 (08:42→21:26)
[2017-07-04] MEDS: GLUCOSAMINE/CHONDROITIN CAP PO SCH ×2 (08:42→21:27)
[2017-07-04] MEDS: PANTOPRAZOLE SODIUM 40 MG TAB PO SCH (08:42)
[2017-07-04] MEDS: DILTIAZEM CD 120 MG CAP PO SCH (08:42)
--- NOTE | 2017-07-04 10:07 | PCMIDPN ---
Assessment/Plan: 1. E coli sepsis secondary to left lower extremity cellulitis/infected wound after Mohs procedure: The patient is clinically improved on ceftriaxone, and wants to leave this afternoon. He states he is driving to [facility], where he will be for the next 2 weeks. I did talk to the microbiology lab, and susceptibilities on the E coli should return later this morning. Suspect that he will be able to transition to an oral fluoroquinolone, Levaquin 750 daily (in clearance okay with this dose) for 8 more days, stop date July 12. Does not need repeat blood cultures in the setting of a known source of infection (lower extremity). Patient was counseled not to go swimming in the [place], and to please follow up with infectious diseases when he returns (patient would like to see Dr. Benson). Patient was warned of the fluoroquinolone side effects, including neuropathy, C difficile colitis, and increased risk of tendinopathy especially given concomitant prednisone use. Patient is willing to take these risks. He expressed understanding. I told him I would call him later this morning, or informed the nurse of discharge plan when I hear from the microbiology lab regarding susceptibilities. Also of note, he will need wound care supplies for his lower extremity. 07/04/17 10:09 Subjective: "I want to go home."Patient states that he is traveling to [place] for the next 2 weeks. He feels much, much better. Lower extremities no longer sore. Objective: Ceftriaxone 1 g IV daily day 2 Afebrile Vital Signs Temp Pulse Resp BP Pulse Ox 36.6 C 70 20 135/67 H 92 07/04/17 07:14 07/04/17 07:14 07/04/17 07:14 07/04/17 07:14 07/04/17 07:14 Microbiology 07/02/17 17:40 Gram Stain - Final Leg - Swab Laboratory Results 07/03/17 04:30 07/03/17 04:30 07/03/17 07/04/17 07/05/17 05:59 05:59 05:59 Intake Total 6190 3075 Output Total 1675 150 Balance 4515 2925 C-Reactive Protein 5.6 mg/L (<10.0) 07/02/17 14:08 Blood cultures July 02 with E coli Leg swab with 1+ gram-negative dewey lactose diagnostics tech and 1+ gram-negative dewey non lactose diagnostics tech - Physical Exam General Appearance: alert, no apparent distress, other (Appears mildly cushingoid) EENT: pharynx normal, No thrush Respiratory: lungs clear Extremities: other (Left lower extremity with dressing in place that I did not take down. No significant tenderness to palpation whatsoever. Some brawny discoloration but no beet red erythema.) ICD10 Worksheet Patient Problems: Problems Problem Status Onset Severe sepsis Acute Wound infection Acute Atrial fibrillation Acute Coronary artery disease Acute Small bowel obstruction Acute Status post coronary artery bypass grafting Acute Vasculitis Acute
--- NOTE | 2017-07-04 10:32 | ASMTLACE ---
LACE Length of stay for Answers: 2 days current admission Acuity / Level of Answers: Yes Care: Did the patient have an inpatient admission? Comorbidities - select Answers: Coronary Artery Disease all that apply Other Notes: severe sepsis # of Emergency department Answers: 1-2 visits in the last 6 months Score: 9 Date Signed: 07/04/2017 10:31 AM Electronically Signed By:Anisha Joy RN
--- NOTE | 2017-07-04 10:38 | ASMTCMCOM ---
CM Note CM Note Notes: Pt cleared for home by PT/OT, has family support. Anticipate will dc home today if medically stable, CM available for any changes. DC Plan: Independent Date Signed: 07/04/2017 10:37 AM Electronically Signed By:Anisha Joy RN
[2017-07-04] MEDS ORDERED: ALTEPLASE 2 MG VIAL IVP PRN (13:14)
--- NOTE | 2017-07-04 13:23 | PDIAF ---
- Diagnosis Diagnosis: e. coli sepsis, LLE cellulitis Code Status: Full Code - Medication Management Discharge Medications: Medications to Continue on Transfer [place]-3 Fatty Acids [Fish Oil 1000 mg (*)] 1,000 mg PO BID 03/30/12 [Last Taken 07/02/17 08:00] Valsartan [Diovan (*)] 80 mg PO DAILY 03/30/12 [Last Taken 07/02/17] Atorvastatin Calcium [Lipitor 40 mg (*)] 80 mg PO HS 10/08/13 [Last Taken ] Clopidogrel Bisulfate [Plavix (*)] 75 mg PO DAILY18 10/08/13 [Last Taken ] Hydrochlorothiazide [HCTZ (*)] 25 mg PO DAILY 10/08/13 [Last Taken 07/02/17] Multivitamins [Multivitamin (*)] 1 each PO DAILY 10/08/13 [Last Taken 07/02/17] Pantoprazole Sodium [Protonix 40mg (*)] 40 mg PO DAILY 10/08/13 [Last Taken ] Potassium Citrate [Urocit-K 10meq (*)] 20 meq PO BID 10/08/13 [Last Taken 08:00] Tocilizumab [ACTEMRA] 720 mg IV Q28D 10/08/13 [Last Taken 06/19/17] traMADol [Ultram 50 mg (*)] 50 mg PO Q4 PRN 10/08/13 [Last Taken 12/27/15 21:00] Citalopram Hydrobromide [celeXA 10 MG] 10 mg PO HS 12/28/15 [Last Taken 07/01/17 ] Ferrous Sulfate [Ferrous Sulf 325 MG (*)] 325 mg PO HS 12/28/15 [Last Taken ] Glucosamine/Chondroitin [Glucosamine/Chondroitin (*)] 1 each PO BID 12/28/15 [ Last Taken 07/02/17 08:00] Tamsulosin HCl [Flomax] 0.4 mg PO HS 12/28/15 [Last Taken 07/01/17] Apixaban [Eliquis] 2.5 mg PO BID 07/02/17 [Last Taken 07/02/17 08:00] Diltiazem HCl [Diltiazem 24Hr ER] 120 mg PO DAILY 07/02/17 [Last Taken 07/02/17] Zolpidem Tartrate [Ambien 5MG (*)] 10 mg PO HS PRN 07/02/17 [Last Taken Unknown] rOPINIRole HCL [Requip 2mg (*)] 2 mg PO HS 07/02/17 [Last Taken 07/01/17] predniSONE 3 mg PO DAILY 07/03/17 [Last Taken Unknown] predniSONE 5 mg PO DAILY 07/03/17 [Last Taken Unknown] Residential Antibiotics: Ceftriaxone 1 g IV daily Residential Antibiotic Stop Date: 07/12/17 Discharge Medications: Refer to the Discharge Home Medication list for PRN reason. PICC Care - Routine: Yes - Orders Isolation Type: None Additional Instructions: Please make an appointment when you discharge from the hospital to follow up w/ [facility]: [phone]. Schedule appointment now for when you return from [place], as the clinic is busy and appointments fill up quickly. Dressing change orders for left lower leg: to be done every 3 days and as needed if outer dressing is saturated. 1)Cleanse w/ normal saline and gauze. 2)Apply Cavilon skin prep to skin surrounding the wound. 3)Tear off a piece of Sophy Promogran Ag and place into wound bed. 4)Cut piece of Hydrofera Blue Ready dressing to fit wound and secure w/ steri- strips. 5)Cover w/ either Allevyn Life dressing or Mepilex border dressing. EMA Swanson - Follow Up Care Current Providers and Referrals: Marcio Waller MD [Primary Care Provider] - As per Instructions Yomi Benson MD [Medical Doctor] - (Within 10 days, at the [facility].)
--- NOTE | 2017-07-04 13:53 | HOSPPROG ---
Hospitalist Progress Note Assessment/Plan: 71 yo M with hx of vasculitis on chronic immune suppression presenting with severe sepsis in setting of e coli bacteremia and cellulitis # severe sepsis: in setting of e coli bacteremia, cellulitis and improving overnight on cefazolin now transitioned to ctx # e coli bacteremia: with presumably cellulitis as a source and as above. Appreciate ID input. Sensitivities showing fluoroquinolone resistance and in discussion with ID patient will therefore need to dc on IV abx, likely ctx through July 12. PICC line ordered, repeat blood cultures ordered. # cellulitis: presumed source for above, though this is unusual. Per report issues with leg began following Moh's procedure. 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 Dumont and CM as above Subjective: no significant overnight events, patient states he is feeling much better, very eager for discharge in order to travel to [place] Objective: Vital Signs Temp Pulse Resp BP Pulse Ox 36.6 C 70 20 135/67 H 92 07/04/17 07:14 07/04/17 07:14 07/04/17 07:14 07/04/17 07:14 07/04/17 07:14 Microbiology 07/02/17 17:40 Gram Stain - Final Leg - Swab Laboratory Results 07/03/17 04:30 07/03/17 04:30 07/03/17 07/04/17 07/05/17 05:59 05:59 05:59 Intake Total 6190 3075 Output Total 1675 150 Balance 4515 2925 PT 14.2 SEC (12.0-15.0) 07/02/17 14:08 INR 1.08 (0.83-1.16) 07/02/17 14:08 awake alert nad anicteric op clear rrr no mrg cta b soft nt nd lle with erythema to knee, no ttp, no induration warm dry well perfused oriented appropriate - Time Spent With Patient Time Spent with Patient: greater than 35 minutes Time Spent with Patient: Greater than 35 minutes spent on this patients care, greater than 50% of time spent counseling, educating, and coordinating care regarding the above mentioned plan. ICD10 Worksheet Patient Problems: Problems Problem Status Onset Severe sepsis Acute Wound infection Acute Atrial fibrillation Acute Coronary artery disease Acute Small bowel obstruction Acute Status post coronary artery bypass grafting Acute Vasculitis Acute
--- NOTE | 2017-07-04 14:14 | ASMTCMCOM ---
CM Note CM Note Notes: Spoke w/, pt needs IV abx daily, wants pt to do outpt infusion but pt states he has to leave to go to [facility] in [facility]. Pt adamant about going, has been planned for a year. CM sent referral to Bita at [facility], she will run benefits and call CM back. Thinks they may be able to do it. CM spoke with pt, explained that it is preferred that he stay and do infusions at hospital but if he decides to go he will need to be flexible as it may take a day or so to get everything in order. Pt agrees that he can wait a few days if need be. Does not think he will change his mind. DC Plan: Home Infusion/ [facility] Date Signed: 07/04/2017 02:13 PM Electronically Signed By:Anisha Joy RN
--- NOTE | 2017-07-04 14:51 | PDRADPN ---
Radiology Procedure Note Date of Procedure: 07/04/17 Radiologist: Kahlil Nobles Anesthesia: Local (Specify) Pre-op Diagnosis: WOUND INFECTION Post-op Diagnosis: SAME Indication: ABX ACCESS Procedure: RUE SL PICC Finding(s): patent basilic. 43cm from skin jkae to cavoatrial junction. ok to use. Inf/Abcess present in the surg proc area at time of surgery?: No EBL: Minimal Complications: none
[2017-07-04] MEDS ORDERED: LIDOCAINE 1% 300 MG/30 ML SDV ONE (14:53)
[2017-07-04] MEDS: CLOPIDOGREL BISULFATE 75 MG TAB PO SCH (18:01)
[2017-07-04] MEDS ORDERED: CITALOPRAM 20 MG TAB PO SCH (21:00)
[2017-07-04] MEDS: ZOLPIDEM TARTRATE 5 MG TAB PO PRN (21:26)
[2017-07-04] MEDS: ATORVASTATIN CALCIUM 40 MG TAB PO SCH (21:26)
[2017-07-04] MEDS: FERROUS SULFATE 325 MG TAB PO SCH (21:27)
[2017-07-04] MEDS: TAMSULOSIN HCL 0.4 MG CAP PO SCH (22:07)
[2017-07-04] MEDS: CITALOPRAM 20 MG TAB PO SCH (22:07)
[2017-07-05 07:55] VITALS: BP 129/58
[2017-07-05] MEDS: OMEGA-3 FATTY ACIDS 1,000 MG CAP PO SCH (08:09)
[2017-07-05] MEDS: MULTIVITAMINS 1 EACH TAB PO SCH (08:09)
[2017-07-05] MEDS: DILTIAZEM CD 120 MG CAP PO SCH (08:09)
[2017-07-05] MEDS: PANTOPRAZOLE SODIUM 40 MG TAB PO SCH (08:09)
[2017-07-05] MEDS: predniSONE 1 MG TAB PO SCH (08:09)
[2017-07-05] MEDS: APIXABAN 5 MG TAB PO SCH (08:09)
[2017-07-05] MEDS: GLUCOSAMINE/CHONDROITIN CAP PO SCH (08:09)
[2017-07-05] MEDS: predniSONE 5 MG TAB PO SCH (08:09)
--- NOTE | 2017-07-05 09:34 | ASMTCMCOM ---
PHILLIP Note CM Note Notes: Bita from [facility] came to see pt and yesterday regarding plan of pt getting IV infusion while traveling to [facility] for a family reunion. Bita did teaching with them and notified them of their copay expense. Per Bita, they can have the medication delivered to pt's home the evening of discharge. The only question is once he is done with the medication, will he have the PICC line pulled in [place]. Per Dr. Dumont, pt will not require lab draw. PHILLIP spoke w/ who is trying to coordinate with family in [facility] who is an MD and works at a medical center there. There is also another larger hospital there as well. Pt was given instructions and supplies for his leg wound. , ID, and CM to consult with pt and regarding final plan. DC Plan: Home infusion/ [facility] Date Signed: 07/05/2017 09:32 AM Electronically Signed By:Anisha Joy RN
--- NOTE | 2017-07-05 12:37 | ASMTCMCOM ---
CM Note CM Note Notes: Dr Benson met with pt and , they have been cleared for dc and will have PICC pulled in [place], once pt is done with IV abx. [facility] Date Signed: 07/05/2017 12:36 PM Electronically Signed By:Anisha Joy RN
--- NOTE | 2017-07-05 12:38 | PDIAF ---
- Diagnosis Diagnosis: e. coli sepsis, LLE cellulitis Code Status: Full Code - Medication Management Discharge Medications: Medications to Continue on Transfer [place]-3 Fatty Acids [Fish Oil 1000 mg (*)] 1,000 mg PO BID 03/30/12 [Last Taken 07/02/17 08:00] Atorvastatin Calcium [Lipitor 40 mg (*)] 80 mg PO HS 10/08/13 [Last Taken ] Clopidogrel Bisulfate [Plavix (*)] 75 mg PO DAILY18 10/08/13 [Last Taken ] Multivitamins [Multivitamin (*)] 1 each PO DAILY 10/08/13 [Last Taken 07/02/17] Pantoprazole Sodium [Protonix 40mg (*)] 40 mg PO DAILY 10/08/13 [Last Taken ] Tocilizumab [ACTEMRA] 720 mg IV Q28D 10/08/13 [Last Taken 06/19/17] traMADol [Ultram 50 mg (*)] 50 mg PO Q4 PRN 10/08/13 [Last Taken 12/27/15 21:00] Ferrous Sulfate [Ferrous Sulf 325 MG (*)] 325 mg PO HS 12/28/15 [Last Taken ] Glucosamine/Chondroitin [Glucosamine/Chondroitin (*)] 1 each PO BID 12/28/15 [ Last Taken 07/02/17 08:00] Tamsulosin HCl [Flomax 0.4 MG (*)] 0.4 mg PO HS 12/28/15 [Last Taken 07/01/17] Diltiazem HCl [Diltiazem 24Hr ER] 120 mg PO DAILY 07/02/17 [Last Taken 07/02/17] Zolpidem Tartrate [Ambien 5MG (*)] 10 mg PO HS PRN 07/02/17 [Last Taken Unknown] rOPINIRole HCL [Requip 2mg (*)] 2 mg PO HS 07/02/17 [Last Taken 07/01/17] predniSONE 3 mg PO DAILY 07/03/17 [Last Taken Unknown] predniSONE 5 mg PO DAILY 07/03/17 [Last Taken Unknown] Citalopram Hydrobromide [Celexa] 40 mg PO HS 07/04/17 [Last Taken Unknown] Alteplase [Cathflo Activase 2 mg (*)] 2 mg IVP PRN PRN vial 07/05/17 [Last Taken Unknown] Apixaban [Eliquis] 5 mg PO BID #60 tab 07/05/17 [Last Taken Unknown] cefTRIAXone 1 GM/DEXTROSE [Rocephin 1 gm (Premix)] 50 ml IV DAILY bag 07/05/17 [Last Taken Unknown] Mold Mechanic Antibiotics: Ceftriaxone 1 g IV daily Mold Mechanic Antibiotic Stop Date: 07/12/17 Discharge Medications: Refer to the Discharge Home Medication list for PRN reason. PICC Care - Routine: Yes - Orders Isolation Type: None Diet Recommendation: no restrictions on diet Additional Instructions: Please make an appointment when you discharge from the hospital to follow up w/ Dr[facility] w/in 2 weeks: [phone]. Schedule appointment now for when you return from [place], as the clinic is busy and appointments fill up quickly. Dressing change orders for left lower leg: to be done every 3 days and as needed if outer dressing is saturated. 1)Cleanse w/ normal saline and gauze. 2)Apply Cavilon skin prep to skin surrounding the wound. 3)Tear off a piece of Sophy Promogran Ag and place into wound bed. 4)Cut piece of Hydrofera Blue Ready dressing to fit wound and secure w/ steri- strips. 5)Cover w/ either Allevyn Life dressing or Mepilex border dressing. EMA Swanson We have been holding two of your blood pressure medications: Hydrochlorothiazide and Valsartan because your blood pressure has been on the low end while you have been in the hospital. Your blood pressure may increase again once you are home and feeling better so we would like you to check your blood pressure at least once a day after discharge and call your PCP to determine if and when you should resume those medications. - Follow Up Care Current Providers and Referrals: Marcio Waller MD [Primary Care Provider] - As per Instructions Yomi Benson MD [Medical Doctor] - (Within 10 days, at the [facility].)
--- NOTE | 2017-07-05 12:38 | PDDCSUM ---
Discharge Summary Discharge Summary: Dates of service 07/02-07/05/17 Consultations: ID, pulmonary/critical care medicine Procedures performed: PICC placement Hospital course by problem: 71 yo M with hx of vasculitis on chronic immune suppression presenting with severe sepsis in setting of e coli bacteremia and cellulitis # severe sepsis: in setting of e coli bacteremia, cellulitis and resolved, tx as next # e coli bacteremia: with presumably cellulitis as a source and as above. Plan to continue IV CTx through 07/12 at home, patient traveling to [place] after discharge complicating dispo plan, but worked out a plan with ID and CM for f/u after discharge # cellulitis: presumed source for above, though this is unusual. Per report issues with leg began following Moh's procedure. 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 Patient notes that his joints are more tight today c/w vasculitis flare, CRP is elevated compared to on admission. 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
--- NOTE | 2017-07-05 15:20 | PCMIDPN ---
Assessment/Plan: Assessment: Left lower extremity cellulitis with sepsis due to E coli. Clinically he is improving. Unfortunately the E coli is not sensitive to fluoroquinolones. He will go home with a PICC line and IV ceftriaxone daily. Outpatient IV antibiotic orders are already placed. He can discharge today. Plan: 1. Continue IV ceftriaxone. 2. Discharge home with PICC line. Patient is to go to [place] on a planned family trip. He is instructed to follow up for PICC line removal after completion. 07/05/17 15:17 Subjective: Patient is sitting up in his chair in the hospital room. Clinically he feels much better. No new complaints. No fevers or chills. Objective: Ceftriaxone # 3 Vital Signs Temp Pulse Resp BP Pulse Ox 36.7 C 62 16 129/58 H 92 07/05/17 07:54 07/05/17 07:54 07/05/17 07:54 07/05/17 07:54 07/05/17 07:54 Microbiology 07/02/17 17:40 Gram Stain - Final Leg - Swab Wound Culture - Final Escherichia Coli Klebsiella Species Escherichia Coli#2 Laboratory Results 07/03/17 04:30 07/04/17 16:30 07/04/17 07/05/17 07/06/17 05:59 05:59 05:59 Intake Total 3075 500 Output Total 150 525 Balance 2925 500 -525 C-Reactive Protein 20.6 mg/L (<10.0) H 07/04/17 16:30 - Physical Exam General Appearance: WD/WN, alert, no apparent distress, non-toxic Respiratory: lungs clear, normal breath sounds, No respiratory distress Cardiac/Chest: regular rate, rhythm, No tachycardia Extremities: non-tender, swelling (Left lower extremity but improved.), No normal inspection (Left lower extremity with open wound.), No erythema Skin: normal color, warm/dry, No rash Neuro/Psych: alert, normal mood/affect, oriented x 3 ICD10 Worksheet Patient Problems: Problems Problem Status Onset Atrial fibrillation Acute Coronary artery disease Acute Severe sepsis Acute Small bowel obstruction Acute Status post coronary artery bypass grafting Acute Vasculitis Acute Wound infection Acute
--- NOTE | 2017-07-05 17:06 | ASDISCHSUM ---
Discharge Information Plan Status:IV ABX/Infusion Medically Cleared to Leave: Discharge Date:07/05/2017 01:40 PM CM D/C Disposition:Home, Routine, Self-Care ADT D/C Disposition:Home Health Service Projected Discharge Date:07/04/2017 11:00 AM Transportation at D/C:Family Discharge Delay Reason: Follow-Up Date:07/04/2017 11:00 AM Discharge Slot: Final Diagnosis: Placement Information Referral Type:Home Infusion Referral ID:[id number] Provider Name:[facility] Address 1:[address] Address 2: City:[place] Selection Factors: State:[place] Patient Contact Information Contact Name:OLIVIA Relationship: Address:[address] City:[place] Alternate Phone: State/Zip Code:[place] [address] Email: Financial Information Financial Class:Medicare Primary Plan Desc:MEDICARE INPATIENT Primary Plan Number:[id number] Secondary Plan Desc:JIM PAL INDEMNI Secondary Plan Number:[id number] Assessment Information LACE LACE Length of stay for Answers: 2 days current admission Acuity / Level of Answers: Yes Care: Did the patient have an inpatient admission? Comorbidities - select Answers: Coronary Artery Disease all that apply Other Notes: severe sepsis # of Emergency department Answers: 1-2 visits in the last 6 months Score: 9 Date Signed: 07/04/2017 10:31 AM Electronically Signed By:Anisha Joy RN [facility] Initial CM Assessment Living Arrangements What is your living Answers: With Spouse arrangement? Who do you live with? Type Of Residence What kind of residence do Answers: House you live in? 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 Patient recently underwent Mohs surgery for squamous cell carcinoma. Patient has been admitted for severe sepsis, wound infection, CAD, AFIB, small bowel obstruction, and status post coronary artery bypass grafting. Wound care ordered. No therapies have been ordered at this time.D/C plan TBD. CM will follow. Date Signed: 07/03/2017 12:23 PM Electronically Signed By:Kita Diana LCSW [facility] CM Progress Note CM Note CM Note Notes: Pt cleared for home by PT/OT, has family support. Anticipate will dc home today if medically stable, CM available for any changes. DC Plan: Independent Date Signed: 07/04/2017 10:37 AM Electronically Signed By:Anisha Joy RN [facility] CM Progress Note CM Note CM Note Notes: Spoke w/, pt needs IV abx daily, wants pt to do outpt infusion but pt states he has to leave to go to family reunion in [facility]. Pt adamant about going, has been planned for a year. CM sent referral to Bita granados [facility], she will run benefits and call CM back. Thinks they may be able to do it. PHILLIP spoke with pt, explained that it is preferred that he stay and do infusions at hospital but if he decides to go he will need to be flexible as it may take a day or so to get everything in order. Pt agrees that he can wait a few days if need be. Does not think he will change his mind. DC Plan: Home Infusion/ [facility] Date Signed: 07/04/2017 02:13 PM Electronically Signed By:Anisha Joy RN [facility] PHILLIP Progress Note PHILLIP Note PHILLIP Note Notes: Bita from [facility] came to see pt and yesterday regarding plan of pt getting IV infusion while traveling to [facility] for a family reunion. Bita did teaching with them and notified them of their copay expense. Per Bita, they can have the medication delivered to pt's home the evening of discharge. The only question is once he is done with the medication, will he have the PICC line pulled in [place]. Per Dr. Dumont, pt will not require lab draw. PHILLIP spoke w/ who is trying to coordinate with family in [facility] who is an MD and works at a medical center there. There is also another larger hospital there as well. Pt was given instructions and supplies for his leg wound. MD, ID, and CM to consult with pt and regarding final plan. DC Plan: Home infusion/ [facility] Date Signed: 07/05/2017 09:32 AM Electronically Signed By:Anisha Joy RN [facility] PHILLIP Progress Note CM Note CM Note Notes: Dr Benson met with pt and , they have been cleared for dc and will have PICC pulled in [place], once pt is done with IV abx. CM notified Eboni at [facility] Date Signed: 07/05/2017 12:36 PM Electronically Signed By:Anisha Joy RN Case Management Discharge Plan Note Case Management Discharge Discharge Order Complete? Answers: Yes Patient to Obtain Answers: Other Notes: [facility] Medications Transportation Arranged Answers: Family/Friends Faxed Final Orders Answers: Yes Family Notified Answers: Yes Discharge Comments Notes: D/sebastián VALENTIN, final orders faxed, Eboni at [facility] notified and will call . Date Signed: 07/05/2017 12:38 PM Electronically Signed By:Anisha Joy RN Intervention Information Intervention Type:*Incorrect Registration Date of Service:07/02/2017 05:12 PM Patient Type:Observation Staff Member:CHITO Lyon, Talia Hours: Discipline: Severity: Comment:
== END 2017-07-05 13:40 | disposition home health service (06) | DRG 862 ==
LOC: OBSVTOIN 14:58 → F2N 16:30 → F3E 07-03 17:53
PROVIDERS: ADMIT Internal Medicine; ATTEND Internal Medicine
PROC: 02HV33Z Insertion of Infusion Device into Superior Vena Cava, Percutaneous Approach (ICD-10-PCS; principal; 2017-07-04)
DX: T81.4XXA Infection following a procedure, initial encounter (principal); L03.116 Cellulitis of left lower limb; A41.51 Sepsis due to Escherichia coli [E. coli]; R65.21 Severe sepsis with septic shock; N17.9 Acute kidney failure, unspecified; N18.3 Chronic kidney disease, stage 3 (moderate); N28.9 Disorder of kidney and ureter, unspecified; E87.2 Acidosis; D69.6 Thrombocytopenia, unspecified; I77.6 Arteritis, unspecified; Z79.52 Long term (current) use of systemic steroids; I25.10 Atherosclerotic heart disease of native coronary artery without angina pectoris; Z95.5 Presence of coronary angioplasty implant and graft; Z95.820 Peripheral vascular angioplasty status with implants and grafts; I48.0 Paroxysmal atrial fibrillation; Z85.828 Personal history of other malignant neoplasm of skin; E78.5 Hyperlipidemia, unspecified; K21.9 Gastro-esophageal reflux disease without esophagitis; N40.0 Benign prostatic hyperplasia without lower urinary tract symptoms; F32.9 Major depressive disorder, single episode, unspecified
CPT/HCPCS: 82947-QW; 96365; 97161-GP; 97165-GO; C1751; G8978-GP-CH; G8979-GP-CH; G8980-GP-CH; G8987-GO-CI; G8988-GO-CI; G8989-GO-CI; J0690; J0696; J2405; J2920; J3370; J7512

== ENCOUNTER 2017-08-18 06:13 | Emergency (ER) | payer OTHER ==
[2017-08-18] MEDS ORDERED: LIDOCAINE 2% JELLY 20 ML (UROJECT) ONE (06:37)
[2017-08-18] MEDS ORDERED: LIDOCAINE 2% JELLY 20 ML (UROJECT) UR ONE (06:38)
[2017-08-18] MEDS ORDERED: NS 500 ML IV ONE (07:13)
[2017-08-18] MEDS ORDERED: ONDANSETRON 4 MG/2 ML VIAL IVP ONE (07:15)
--- NOTE | 2017-08-18 07:19 | EDPHY ---
H & P Time Seen by Provider: 08/18/17 07:01 HPI/ROS: CHIEF COMPLAINT: Hematuria HISTORY OF PRESENT ILLNESS: Patient is a 71-year-old male with a history of small and medium vessel vasculitis, status post bilateral renal stents and mesenteric stents on Eliquis and Plavix who presents to the emergency department with ghassan hematuria. The patient's symptoms started 2 nights ago. He had intermittent hematuria. This worsened with clotting. He subsequently has been unable to urinate since 2:00 a.m.. He has no did his urea. Denies frequency. He denies flank pain. No fevers or chills. This is not feel like his previous kidney stone. He denies any abdominal pain. No nausea or vomiting. REVIEW OF SYSTEMS: My complete review of systems is negative except as mentioned in the HPI. Past Medical/Surgical History: Includes small and medium vessel vasculitis, atrial fibrillation, kidney stone Past surgical history: Includes CABG, mesenteric stents, renal stents, vitreous surgery, cataract surgery Social history: Patient does not smoke Smoking Status: Never smoked Physical Exam: Vitals noted GENERAL: Well-appearing, in no acute distress, alert. HEENT: Eyes normal to inspection, normal pharynx, no signs of dehydration. NECK: No thyromegaly, no lymphadenopathy, supple. RESPIRATORY: Clear to auscultation bilaterally, no rales, rhonchi or wheezing. CVS: Regular rate and rhythm, no rubs, murmurs, or gallops. ABDOMEN: Soft, nontender, nondistended, no organomegaly.\ : Ghassan blood from the Yin. Normal external exam BACK: Normal to inspection, no CVA tenderness. SKIN: Normal color, no rash, warm, dry. No pallor. EXTREMITIES: No pedal edema, no calf tenderness, no joint swelling. NEURO/PSYCH: Alert and oriented, normal mood and affect, normal motor sensory exam. Constitutional: Initial Vital Signs Temperature (C) 36.3 C 08/18/17 06:17 Heart Rate 63 08/18/17 06:17 Respiratory Rate 18 08/18/17 06:17 Blood Pressure 113/40 L 08/18/17 06:17 O2 Sat (%) 95 08/18/17 06:17 O2 Delivery Mode Room Air O2 (L/minute) 2 Allergies/Adverse Reactions: No Known Allergies Allergy (Verified 07/02/17 13:52) Home Medications: Medication Instructions Recorded [place]-3 Fatty Acids [Fish Oil 1000 1,000 mg PO BID 03/30/12 mg (*)] Atorvastatin Calcium [Lipitor 40 80 mg PO HS 10/08/13 mg (*)] Clopidogrel Bisulfate [Plavix (*)] 75 mg PO DAILY18 10/08/13 Multivitamins [Multivitamin (*)] 1 each PO DAILY 10/08/13 Pantoprazole Sodium [Protonix 40mg 40 mg PO DAILY 10/08/13 (*)] Tocilizumab [ACTEMRA] 720 mg IV Q28D 10/08/13 traMADol [Ultram 50 mg (*)] 50 mg PO Q4 PRN 10/08/13 Ferrous Sulfate [Ferrous Sulf 325 325 mg PO HS 12/28/15 MG (*)] Glucosamine/Chondroitin 1 each PO BID 12/28/15 [Glucosamine/Chondroitin (*)] Tamsulosin HCl [Flomax 0.4 MG (*)] 0.4 mg PO HS 12/28/15 Diltiazem HCl [Diltiazem 24Hr ER] 120 mg PO DAILY 07/02/17 Zolpidem Tartrate [Ambien 5MG (*)] 10 mg PO HS PRN 07/02/17 rOPINIRole HCL [Requip 2mg (*)] 2 mg PO HS 07/02/17 predniSONE 3 mg PO DAILY 07/03/17 predniSONE 5 mg PO DAILY 07/03/17 Citalopram Hydrobromide [Celexa] 40 mg PO HS 07/04/17 Apixaban [Eliquis] 5 mg PO BID #60 tab 07/05/17 Tamsulosin HCl [Flomax] 0.4 mg PO DAILY #4 cap 08/18/17 Medical Decision Making - Diagnostics Imaging Results: Imaging Impressions Abdomen/Pelvis CT 08/18/17 07:14 Impression: 1. Negative for acute abdominopelvic process. 2. Suggestion of mild mesenteric panniculitis of the left hemiabdomen. 3. 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 No hydronephrosis. 4. Prostatomegaly. Abdomen/Pelvis Ultrasound 08/18/17 07:14 Impression: 1. Negative for hydronephrosis. 2. Hypoechoic lesion measuring 1.7 cm arises from the upper pole left kidney. This may represent a complex cyst. Recommend non-emergent MRI evaluation. ED Course/Re-evaluation: In the emergency department I discussed possible etiologies with the patient. I answered all his questions. IV was placed. Laboratory studies were obtained. Due to the patient's vasculitis, renal stents, previous stone imaging including ultrasound and CT were ordered. Patient given normal saline 500 mL IV. He is given morphine 4 mg IV for pain and Zofran 4 mg IV for nausea. The patient's laboratory studies. White count was normal. Mildly anemic with hematocrit 37. Patient's creatinine was 1.4. I compared this with previous values. Coags are unremarkable. CT abdomen and pelvis/renal ultrasound: Please refer the dictated report by the radiologist. Negative for hydronephrosis. Hypoechoic lesion measuring 1.7 cm arises from the upper pole of the left kidney. This may represent a complex cyst. This will need outpatient follow-up. The patient has mild mesenteric panniculitis of the left vinny abdomen I discussed the results with the patient. I answered all his questions. He was doing well. Abdomen was soft, nontender nondistended. I discussed the results with Dr. Llamas from Nephrology. She will inform Dr. Granger and arrange close follow-up. I also discussed the case with Dr. Dewey from Urology. He will arrange close follow-up with Dr. Flores. 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 Patient will also follow up with his it analyst who prescribes him Eliquis. At this time I feel that he should talk to cardiology regarding his anticoagulation prior to stopping. Patient is aware that his symptoms could worsen because he is on Eliquis. He was given warnings prior to leaving. He was given instruction on leg bag and Yin care. He will return with worsening symptoms. Differential Diagnosis: Differential includes but is not limited to vasculitis, kidney stone, pyelonephritis, urinary tract infection, mass, malignancy, ischemia, coagulopathy - Data Points Laboratory Results: Laboratory Results 08/18/17 07:15 18 07:15 08/18/17 08/18/17 08/18/17 07:15 07:15 07:15 WBC RBC Hgb Hct MCV MCH MCHC RDW Plt Count MPV Neut % (Auto) Lymph % (Auto) Gem % (Auto) Eos % (Auto) Baso % (Auto) Nucleat RBC Rel Count Absolute Neuts (auto) Absolute Lymphs (auto) Absolute Monos (auto) Absolute Eos (auto) Absolute Basos (auto) Absolute Nucleated RBC Immature Gran % Immature Gran # Platelet Estimate PT 17.6 SEC H SEC (12.0-15.0) INR 1.43 H (0.83-1.16) APTT 26.3 SEC SEC (23.0-38.0) Sodium 137 mEq/L mEq/L (135-145) Potassium 4.0 mEq/L mEq/L (3.3-5.0) Chloride 102 mEq/L mEq/L (97-110) Carbon Dioxide 32 mEq/l H mEq/l (22-31) Anion Gap 3 mEq/L L mEq/L (8-16) BUN 33 mg/dL H mg/dL (7-23) Creatinine 1.4 mg/dL H mg/dL (0.7-1.3) Estimated GFR 50 Glucose 80 mg/dL mg/dL (70-100) Calcium 8.5 mg/dL mg/dL (8.5-10.4) Urine Color Urine Appearance Urine pH Ur Specific [place] Urine Protein Urine Ketones Urine Blood Urine Nitrate Urine Bilirubin Urine Urobilinogen Ur Leukocyte Esterase Urine RBC >182 /hpf H /hpf (0-3) Urine WBC 0-1 /hpf /hpf (0-3) Ur Epithelial Cells NONE SEEN /lpf /lpf (NONE-1+) Urine Glucose Urine Comment SEE COMMENT 08/18/17 08/18/17 07:15 07:04 WBC 4.97 10^3/uL 10^3/uL (3.80-9.50) RBC 3.94 10^6/uL L 10^6/uL (4.40-6.38) Hgb 12.9 g/dL L g/dL (13.7-17.5) Hct 37.9 % L % (40.0-51.0) MCV 96.2 fL fL (81.5-99.8) MCH 32.7 pg pg (27.9-34.1) MCHC 34.0 g/dL g/dL (32.4-36.7) RDW 13.0 % % (11.5-15.2) Plt Count 89 10^3/uL L 10^3/uL (150-400) MPV 12.4 fL H fL (8.7-11.7) Neut % (Auto) 74.6 % H % (39.3-74.2) Lymph % (Auto) 11.9 % L % (15.0-45.0) Gem % (Auto) 10.1 % % (4.5-13.0) Eos % (Auto) 2.0 % % (0.6-7.6) Baso % (Auto) 0.6 % % (0.3-1.7) Nucleat RBC Rel Count 0.0 % % (0.0-0.2) Absolute Neuts (auto) 3.71 10^3/uL 10^3/uL (1.70-6.50) Absolute Lymphs (auto) 0.59 10^3/uL L 10^3/uL (1.00-3.00) Absolute Monos (auto) 0.50 10^3/uL 10^3/uL (0.30-0.80) Absolute Eos (auto) 0.10 10^3/uL 10^3/uL (0.03-0.40) Absolute Basos (auto) 0.03 10^3/uL 10^3/uL (0.02-0.10) Absolute Nucleated RBC 0.00 10^3/uL 10^3/uL (0-0.01) Immature Gran % 0.8 % % (0.0-1.1) Immature Gran # 0.04 10^3/uL 10^3/uL (0.00-0.10) Platelet Estimate DECREASED L (ADEQ) PT INR APTT Sodium Potassium Chloride Carbon Dioxide Anion Gap BUN Creatinine Estimated GFR Glucose Calcium Urine Color RED Urine Appearance TURBID Urine pH TNP Ur Specific [place] TNP Urine Protein TNP Urine Ketones TNP Urine Blood TNP Urine Nitrate TNP Urine Bilirubin TNP Urine Urobilinogen TNP Ur Leukocyte Esterase TNP Urine RBC Urine WBC Ur Epithelial Cells Urine Glucose TNP Urine Comment Medications Given: Discontinued Medications Sodium Chloride (Ns) 500 mls @ 0 mls/hr IV EDNOW ONE; Wide Open PRN Reason: Protocol Stop: 08/18/17 07:14 Last Admin: 08/18/17 07:25 Dose: 500 mls Lidocaine (Uroject Lidocaine 2% Jelly) 20 ml UR EDNOW ONE Stop: 08/18/17 06:39 Last Admin: 08/18/17 06:45 Dose: 20 ml Morphine Sulfate (Morphine) 4 mg IVP EDNOW ONE Stop: 08/18/17 07:16 Last Admin: 08/18/17 07:28 Dose: 4 mg Ondansetron HCl (Zofran) 4 mg IVP EDNOW ONE Stop: 08/18/17 07:16 Last Admin: 08/18/17 07:26 Dose: 4 mg Tamsulosin HCl (Flomax) 0.4 mg PO EDNOW ONE Stop: 08/18/17 09:53 Last Admin: 08/18/17 10:01 Dose: Not Given Departure - Departure Disposition: Home, Routine, Self-Care Clinical Impression: Acute retention of urine Hematuria Qualifiers: Hematuria type: gross Qualified Code(s): R31.0 - Gross hematuria Condition: Good Instructions: [facility] Patient Education, Infection Prevention, Urinary Retention in Men (ED), Yin Catheter Placement and Care (ED), Hematuria (ED) Additional Instructions: Your to leave your Yin catheter in place until follow-up. Call Dr. Flores' s office to make an appointment. If you Yin malfunction is call Dr. Flores is office or return to the emergency department. I also informed Dr. Granger is office to you're in the emergency department. Call his office to arrange close follow-up. Of note, you're imaging showed a cyst on the left kidney. This will need further outpatient follow-up. Referrals: Gustavo Reynoso MD [Primary Care Provider] - As per Instructions Pérez Flores MD [Medical Doctor] - 2-3 days without fail Prescriptions: Tamsulosin HCl [Flomax] 0.4 mg PO DAILY #4 cap
[2017-08-18 07:26] LABS: PLATELET COUNT 89 10^3/uL (150-400)
[2017-08-18 07:35] LABS: INR 1.43 (0.83-1.16); PROTIME(PATIENT) 17.6 SEC (12.0-15.0)
[2017-08-18] MEDS ORDERED: TAMSULOSIN HCL 0.4 MG CAP PO ONE (09:52)
[2017-08-18 10:51] VITALS: BP 122/53
== END 2017-08-18 11:13 | disposition home or self-care (01) ==
PROC: 0T9B70Z Drainage of Bladder with Drainage Device, Via Natural or Artificial Opening (ICD-10-PCS; principal; 2017-08-18)
DX: R31.0 Gross hematuria (principal); R33.9 Retention of urine, unspecified; E86.9 Volume depletion, unspecified
CPT/HCPCS: 51702; 74176; 76770; 96374; 96375; 99285; J2270; J2405

== ENCOUNTER → 2017-09-23 | Outpatient (CLI) | payer OTHER | DX: M25.559 Pain in unspecified hip (principal) | CPT/HCPCS: 73502-PO ==

== ENCOUNTER → 2017-09-29 | Outpatient (CLI) | payer OTHER | LOC: CIMAGING 13:27 | PROVIDERS: ATTEND Internal Medicine | DX: M16.0 Bilateral primary osteoarthritis of hip (principal); N43.3 Hydrocele, unspecified; K42.9 Umbilical hernia without obstruction or gangrene; K40.90 Unilateral inguinal hernia, without obstruction or gangrene, not specified as recurrent; M51.36 Other intervertebral disc degeneration, lumbar region | CPT/HCPCS: 72192-PO ==

== ENCOUNTER → 2017-10-29 | Outpatient (CLI) | payer OTHER ==
[~2017-10-29] MED LIST: GADOBUTROL 10 ML VIAL IVP ONE
== END ==
LOC: FIMAGING 10:13
PROVIDERS: ATTEND Internal Medicine
DX: R22.42 Localized swelling, mass and lump, left lower limb (principal); N43.3 Hydrocele, unspecified
CPT/HCPCS: 73720; A9585; 82565-PO

== ENCOUNTER 2017-11-20 08:06 | Emergency (ER) | payer OTHER ==
--- NOTE | 2017-11-20 09:09 | EDPHY ---
General - History Smoking Status: Never smoked Time Seen by Provider: 11/20/17 09:00 Narrative: CHIEF COMPLAINT: Leg infection HISTORY OF PRESENT ILLNESS: Patient presents for prep vehicle with complaints of leg infection. He states this started last night. He was actually seen at the wound Center for his routine visit and was told that is wounds were looking well. He agrees with this. However over the course of the evening, he developed some redness, pain to the left anterior lamb. He has no trauma to the area. He has no bruising outside at baseline. No chest pain. No shortness of breath. Headache. He is concerned because he does have vasculitis with chronic healing wounds and scheduled for right lower extremity angioplasty on Friday. He contacted the his wounds surgeon, recommended he present here for evaluation. No other associated complaints or modifying factors REVIEW OF SYSTEMS: 10 systems were reviewed and negative with the exception of the elements mentioned in the history of present illness. PCP: Dr. Waller SPECIALISTS: Rheumatology, Dr. Patel Wound, general surgeon, Dr. Bueno Cardiology, Dr. Guadarrama Vascular surgeon, [facility] PAST MEDICAL HISTORY: Systemic Vasculitis, renal artery stenosis, AFib, coronary artery disease, cataracts PAST SURGICAL HISTORY: Cardiac ablation, vitreous surgery, lumbar surgery, left leg vascular surgery SOCIAL HISTORY: Never smoker. Lives independently. 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 Well-appearing nontoxic. Ambulatory without difficulty Head: normocephalic, atraumatic Eyes: Pupils equal and round, no conjunctival pallor or injection Respiratory: Lungs are clear to auscultation Cardiovascular: Regular rate and rhythm. No murmur. Good signs of perfusion distally with symmetric DP PT pulses. There is evidence of venous stasis bilateral lower extremities. Back: non-tender, no bony abnormalities Neurological: A&O, nonfocal, normal gait Skin: Warm and dry. Venous stasis dermatitis bile lower extremities. There is an irregular shaped area of cellulitis left anterior lamb that has been marked with surgical marker. Longest diameter 15 cm x 13 cm. There is no crepitus. No gangrene. Fluctuance. Chronic healing wounds without signs of acute infection. No purpura. Extremities: Nontender, no pedal edema. Wounds as above in skin section. Psychiatric: Mood and affect normal DIFFERENTIAL DIAGNOSES: Including but not limited to cellulitis, DVT, vasculitis, venous stasis dermatitis, HSP MDM: 9:10 a.m. Likely left lower leg, anterior/lamb cellulitis that developed yesterday evening. This was after being examined by his wound Center physician Dr. Patel. He is well-appearing. Vital signs are within normal limits with bowel temperature but he is afebrile. His chronic wounds are well appearing and he has no complaints with him. He is anticoagulated on Plavix. I discussed the case with Dr. García at Dr. Bueno. Dr. Bueno has offered inpatient versus outpatient therapy for the patient. She does feel that he is stable for outpatient treatment as she has evaluated him within the past 24 hr. She would like and started on Keflex 500 mg 4 times daily with close follow-up. 24-48 hour ED precautions if his symptoms worsen. I have offered both options to the patient he is comfortable being discharged home outpatient therapy. We did discuss the possible risk of outpatient failure that would require and return to the emergency admitted. I also feel it is reasonable to start this patient on outpatient therapy at this time. I have marked the borders of the cellulitis. We discussed ED precautions. He knows that he will need to contact her office and that he could be seen on Friday at 3:00 p.m.. I have answered all his questions. He is discharged home stable condition. SUPERVISION: Patient was independently examined, but I discussed the case with my secondary supervising physician Dr. García. CONSULTATION: (Hector William) Medical Decision Making: PHYSICIAN DOCUMENTATION: The patient was evaluated and managed by the Physician Dance Costume Designer. My co- signature indicates that I have reviewed this chart and I agree with the findings and plan of care as documented. I am the secondary supervising physician. (Sukumar García) - Objective Vital Signs: Initial Vital Signs Temperature (C) 37.7 C 11/20/17 08:20 Heart Rate 78 11/20/17 08:20 Respiratory Rate 18 11/20/17 08:20 Blood Pressure 132/52 H 11/20/17 08:20 O2 Sat (%) 93 11/20/17 08:20 O2 Delivery Mode Room Air Allergies/Adverse Reactions: No Known Allergies Allergy (Verified 07/02/17 13:52) Home Medications: Medication Instructions Recorded [place]-3 Fatty Acids [Fish Oil 1000 1,000 mg PO BID 03/30/12 mg (*)] Atorvastatin Calcium [Lipitor 40 80 mg PO HS 10/08/13 mg (*)] Clopidogrel Bisulfate [Plavix (*)] 75 mg PO DAILY18 10/08/13 Multivitamins [Multivitamin (*)] 1 each PO DAILY 10/08/13 Pantoprazole Sodium [Protonix 40mg 40 mg PO DAILY 10/08/13 (*)] Tocilizumab [ACTEMRA] 720 mg IV Q28D 10/08/13 traMADol [Ultram 50 mg (*)] 50 mg PO Q4 PRN 10/08/13 Ferrous Sulfate [Ferrous Sulf 325 325 mg PO HS 12/28/15 MG (*)] Glucosamine/Chondroitin 1 each PO BID 12/28/15 [Glucosamine/Chondroitin (*)] Tamsulosin HCl [Flomax 0.4 MG (*)] 0.4 mg PO HS 12/28/15 Diltiazem HCl [Diltiazem 24Hr ER] 120 mg PO DAILY 07/02/17 Zolpidem Tartrate [Ambien 5MG (*)] 10 mg PO HS PRN 07/02/17 rOPINIRole HCL [Requip 2mg (*)] 2 mg PO HS 07/02/17 predniSONE 3 mg PO DAILY 07/03/17 predniSONE 5 mg PO DAILY 07/03/17 Citalopram Hydrobromide [Celexa] 40 mg PO HS 07/04/17 Apixaban [Eliquis] 5 mg PO BID #60 tab 07/05/17 Tamsulosin HCl [Flomax] 0.4 mg PO DAILY #4 cap 08/18/17 Cephalexin [Keflex (*)] 500 mg PO QID #40 cap 11/20/17 Departure - Departure Disposition: Home, Routine, Self-Care Clinical Impression: Cellulitis of left anterior lower leg, Vasculitis Condition: Good Instructions: Cellulitis (ED) Additional Instructions: 1. Keflex 500 mg 4 times daily until told to stop by Dr. Bueno 2. Contact the wound center or Dr. Bueno's office to be seen on Friday at 3:00 p.m. You will need to call them to schedule this 3. ED precautions worsening redness, pain, swelling, fever, difficulty ambulating Referrals: Zonia Bueno MD [Medical Doctor] - As per Instructions (To be seen on Friday without fail. You will need to call them to schedule this) Marcio Waller MD [Primary Care Provider] - As per Instructions [facility] [Clinic] - As per Instructions Prescriptions: Cephalexin [Keflex (*)] 500 mg PO QID #40 cap
[2017-11-20] MEDS ORDERED: OXYCODONE/APAP 5/325 TAB PO ONE (09:49)
[2017-11-20 09:55] VITALS: BP 135/78
== END 2017-11-20 10:03 | disposition home or self-care (01) ==
DX: L03.116 Cellulitis of left lower limb (principal); I77.6 Arteritis, unspecified

== ENCOUNTER → 2017-12-09 | Outpatient (CLI) | payer OTHER | LOC: BHFA 11:15 | PROVIDERS: ATTEND Internal Medicine Interventional Cardiology | DX: I48.0 Paroxysmal atrial fibrillation (principal); I25.10 Atherosclerotic heart disease of native coronary artery without angina pectoris; I73.9 Peripheral vascular disease, unspecified ==

== ENCOUNTER → 2018-01-13 | Outpatient (CLI) | payer OTHER | LOC: CIMAGING 10:16 | PROVIDERS: ATTEND Specialist | DX: N43.3 Hydrocele, unspecified (principal); N50.0 Atrophy of testis | CPT/HCPCS: 76870-PO ==

== ENCOUNTER → 2018-04-22 | Outpatient (CLI) | payer OTHER | LOC: FIMAGING 08:54 | PROVIDERS: ATTEND Orthopaedic Surgery | DX: Z09 Encounter for follow-up examination after completed treatment for conditions other than malignant neoplasm (principal) | CPT/HCPCS: 73720; A9585; 82565-PO ==

== ENCOUNTER → 2018-07-08 | Outpatient (CLI) | payer OTHER | LOC: CIMAGING 14:51 ==